=== PATIENT | male | born 1965 | race Two or more races ===

== ENCOUNTER 2020-05-21 08:36 | Inpatient (IN) | payer OTHER ==
--- NOTE | 2020-05-21 09:16 | BHS.RME ---
Substance Use & Tx History - Substance Use History Alcohol Substance amount: 1 cale Ortega Frequency of use: Daily Substance route: Oral Date of Last Use: 05/20/20 Cocaine-Crack Substance amount: $500 Frequency of use: Daily Substance route: Smoking Date of Last Use: 05/20/20 Physical/Psych/Mental Status - Behavior General Behavior: Increased activity (restlessness, agitation) Eye Contact: Normal - Cooperativeness Cooperativeness: Cooperative - Thinking Thought Processes: Tight, Logical, Goal Directed Thought content: Future oriented - Physical Health Problems Is patient presently having any pain?: No Does patient presently have any injuries (include location): No Does patient currently have a fever: No Is patient : No CIWA Nausea/Vomitin Muscle Tremors: 2 Anxiety: 4-Mod. Anxious/Guarded Agitation: 4-Moderately Restless Paroxysmal Sweats: 3 Orientation: 1-Uncertain about Date Tacttile Disturbances: 0-None Auditory Disturbances: 0-None Visual Disturbances: 0-None Headache: 0-None Present CIWA-Ar Total Score: 17
--- NOTE | 2020-05-21 09:42 | HP ---
CIWA Score Nausea/Vomitin Muscle Tremors: 2 Anxiety: 4-Mod. Anxious/Guarded Agitation: 4-Moderately Restless Paroxysmal Sweats: 3 Orientation: 1-Uncertain about Date Tacttile Disturbances: 0-None Auditory Disturbances: 0-None Visual Disturbances: 0-None Headache: 0-None Present CIWA-Ar Total Score: 17 - Admission Criteria OASAS Guidelines: Admission for Medically Managed Detox: Requires at least one of the followin. CIWA greater than 12 2. Seizures within the past 24 hours 3. Delirium tremens within the past 24 hours 4. Hallucinations within the past 24 hours 5. Acute intervention needed for co occurring medical disorder 6. Acute intervention needed for co occurring psychiatric disorder 7. Severe withdrawal that cannot be handled at a lower level of care (continued vomiting, continued diarrhea, abnormal vital signs) requiring intravenous medication and/or fluids 8. Admitting History and Physical - Admission Chief Complaint: Mr. Devine is a 54 yo man who presents to [facility] stating he needs detox and then assisted rehab to be able to go back to his , "there is no option". History of Present Illness: Mr. Devine is a 54 yo man who presents to [facility] stating he needs detox and then assisted rehab to be able to go back to his , "there is no option". He was last here in December for Rehab. He relapsed on April 11, 2020. He was at [facility] today for chest pain. He has no records, may have left in [place]. Pt states he was evaluated with an EKG and discharged/told to come in for detox at [facility]. PMH: scoliosis, chronic low back pain, lichen planus PSH: lumbar spinal surgery, scolisosis surgery age 13 with rods, then rods removed, bilateral TMJ Psych: PTSD: no meds. Admitted years ago to a Psychiatric facility SOC: homeless, on the streets Legal: none Substance Use History Alcohol Substance amount: 1 pint Shannon Frequency of use: Daily Substance route: Oral Date of Last Use: 05/20/20 First drink age 24 y. No hx of seizure Has had blackouts, last was months ago Admits to eye [facility] Cocaine-Crack Substance amount: $500 Frequency of use: Daily Substance route: Smoking Date of Last Use: 05/20/20 Began age 24 yo Pt meds: amlodipine unsure of dose ? 10 mg, lipitor ? 20 or 40 mg daily, Claritian 10, Tramadol, prednisone 10 mg daily for lichen planus I stop: last rx filed Tramadol 50 mg, 14 tabs. 2018 and Sep 2019: oxycodone History Source: Patient Limitations to Obtaining History: No Limitations - Smoking History Smoking history: Never smoked Admission ROS S - HPI Allergies/Adverse Reactions: Allergies Allergy/AdvReac Type Severity Reaction Status Date / Time No Known Drug Allergies AdvReac Verified 12/12/19 12:40 Exam Limitations: No Limitations - Ebola screening Have you traveled outside of the country in the last 21 days: No Have you been sick,other than usual withdrawal symptoms: No Do you have a fever: No - Review of Systems Constitutional: No Symptoms Reported EENT: reports: Blurred Vision (reading glasses not with him) Respiratory: reports: No Symptoms reported Cardiac: reports: Other (no chest pain) GI: reports: Constipated : reports: No Symptoms Reported Musculoskeletal: reports: Back Pain Integumentary: reports: Other (patchy lichen planus) Endocrine: reports: No Symptoms Reported Hematology: reports: No Symptoms Reported Psychiatric: reports: Anxious Patient History - Patient Medical History Hx Asthma: No Hx Chronic Obstructive Pulmonary Disease (COPD): No Hx Cardiac Disorders: No Hx Hypertension: Yes (on meds.) Hx Hypercholesterolemia: Yes Hx Seizures: No Hx Diabetes: No Hx Gastrointestinal Disorders: No Hx Genitourinary Disorders: No Hx Sexually Transmitted Disorders: No Hx Renal Disease (ESRD): No Hx Depression: Yes (Pt is not currently in tx.) Hx Suicide Attempt: No Hx Schizophrenia: No - Patient Surgical History Past Surgical History: Yes Other Surgical History: scoliosis surgery, removal of Paul April 2019, TMJ surgery March 2019 Anesthesia Reaction: No - PPD History Date: 12/14/19 - Smoking Cessation Smoking history: Never smoked Initiated information on smoking cessation: No Admission Physical Exam [facility] - Vital Signs Vital Signs: vs: 111/59, 55, 20, 98.2 - Physical General Appearance: Yes: No Apparent Distress, Nourished, Appropriately Dressed HEENTM: Yes: EOMI, Hearing grossly Normal, Normocephalic, Normal Voice Respiratory: Yes: Lungs Clear, No Respiratory Distress, No Accessory Muscle Use Neck: Yes: Within Normal Limits, Supple Breast: Yes: Breast Exam Deferred Cardiology: Yes: Regular Rhythm, Regular Rate Abdominal: Yes: Non Tender, Flat, Soft, Decreased BS Genitourinary: Yes: Other (deferred) Musculoskeletal: Yes: Gait Steady, Other (surgical scar midline spine from midthoracic to sacrum) Extremities: Yes: Normal Inspection Neurological: Yes: Alert, Normal Response Integumentary: Yes: Other (hyperpigmented patches diffusely over body) - Diagnostic (1) Alcohol dependence with withdrawal, uncomplicated Current Visit: Yes Status: Acute Comment: 1. Admit for Librium detox protocol 2. comfort medication 3. 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 untreated 2. Pt requests consultation with Psychiatry (6) Sciatica Current Visit: No Status: Chronic Qualifiers: Laterality: right Qualified Code(s): M54.31 - Sciatica, right side Comment: 1. Chronic back pain since teens 2. Discussed pain management with patient, will not be able to continue controlled substances while inpatient 3. will review prior visit for treatement of pain in December 2019 4. will add Lidoderm patch 5. Tylenol, ibuprofen, robaxin prn (7) Hernia of abdominal wall Current Visit: No Status: Chronic Comment: 1. patient has been seen in consultation, told he needs surgery, rec: pt to follow up with that provider post rehab Cleared for Admission BHS - Detox or Rehab S Level of Care: Medically Managed Detox Regimen/Protocol: Librium Breathalyzer - Breathalyzer Breathalyzer: 0 Urine Drug Screen - Test Device Lot number: [id number] Expiration date: 12/17/21 - Control Is test valid?: Yes - Results Drug screen NEGATIVE: No Urine drug screen results: JESSA-Cocaine, OXY-Oxycodone Inpatient Rehab Admission - Rehab Decision to Admit Inpatient rehab admission?: No
[2020-05-21 09:55] VITALS: BMI 23.7
[2020-05-21] MEDS ORDERED: BISMUTH SUBSALICYLATE 524 MG/30 ML UD PO PRN (09:55)
[2020-05-21] MEDS ORDERED: ONDANSETRON *ODT* 4 MG TABLET SL PRN (09:55)
[2020-05-21] MEDS ORDERED: IBUPROFEN 400 MG TABLET (FP) PO PRN (09:55)
[2020-05-21] MEDS ORDERED: MAGNESIUM CITRATE 300 ML BOTTLE PO PRN (09:55)
[2020-05-21] MEDS ORDERED: ACETAMINOPHEN 325 MG TABLET (FP) PO PRN ×2 (09:55)
[2020-05-21] MEDS ORDERED: MENTHOL/PHENOL 1 EACH UD MM PRN (09:55)
[2020-05-21] MEDS ORDERED: METHOCARBAMOL 500 MG TABLET PO PRN (09:55)
[2020-05-21] MEDS ORDERED: chlordiazePOXIDE HCL 25 MG CAPSULE PO PRN (09:55)
[2020-05-21] MEDS ORDERED: MAGNESIUM HYDROX 2400MG/30ML ORAL SUSPENSION 30 ML CUP PO PRN (09:55)
[2020-05-21] MEDS ORDERED: MAG HYDROX/AL HYDROX/SIMETH 30 ML UNIT-DOSE CUP PO PRN (09:55)
[2020-05-21] MEDS: amLODIPine BESYLATE 10 MG TABLET (FP) PO SCH (11:06)
[2020-05-21] MEDS: LORATADINE 10 MG TABLET PO SCH (11:30)
[2020-05-21] MEDS: hydrOXYzine PAMOATE 25 MG CAPSULE (FP) PO SCH ×4 (11:32→22:29)
[2020-05-21] MEDS: chlordiazePOXIDE HCL 25 MG CAPSULE PO SCH ×3 (11:33→22:29)
[2020-05-21] MEDS: PRENATAL VITAMINS W/ FOLIC ACID TABLET (FP) PO SCH (11:33)
--- NOTE | 2020-05-21 12:41 | EKG ---
Test Reason : Blood Pressure : / mmHG Vent. Rate : 062 BPM Atrial Rate : 062 BPM P-R Int : 152 ms QRS Dur : 082 ms QT Int : 420 ms P-R-T Axes : 071 -20 065 degrees QTc Int : 426 ms NORMAL SINUS RHYTHM NORMAL ECG WHEN COMPARED WITH ECG OF 12-DEC-2019 12:16, NO SIGNIFICANT CHANGE WAS FOUND Confirmed by LUIS WILKES MD ([id number]) on 05/21/2020 12:40:41 PM Referred By: Confirmed By:LUIS WILKES MD
[2020-05-21] MEDS: LIDOCAINE 5% TOPICAL PATCH TP SCH (13:15)
[2020-05-21] MEDS: predniSONE 10 MG TABLET (UD) PO SCH (13:15)
[2020-05-21 17:33] LABS: HEMATOCRIT 35.2 % (35.4-49); HEMOGLOBIN 11.9 GM/dL (11.7-16.9); MCH 27.7 pg (25.7-33.7); MCHC 33.7 g/dl (32.0-35.9); MEAN PLT VOLUME 9.2 fl (7.5-11.1); PLATELET COUNT 218 K/MM3 (134-434); RBC 4.29 M/mm3 (4.00-5.60); WHITE BLOOD COUNT 6.7 K/mm3 (4.0-10.0)
[2020-05-21 17:46] LABS: ALBUMIN 3.5 g/dl (3.4-5.0); ALK PHOS 131 U/L (45-117); ANION GAP 6 MMOL/L (8-16); BILIRUBIN,TOTAL 0.9 mg/dL (0.2-1); BLOOD UREA NITROGEN 12.6 mg/dL (7-18); CALCIUM 8.9 mg/dL (8.5-10.1); CHLORIDE 107 mmol/L (98-107); CO2 31 mmol/L (21-32); CREATININE 1.1 mg/dL (0.55-1.3); GLUCOSE,RANDOM 80 mg/dL (74-106); POTASSIUM 3.6 mmol/L (3.5-5.1); SGOT/AST 11 U/L (15-37); SGPT/ALT 14 U/L (13-61); SODIUM 144 mmol/L (136-145); TOT PROT 6.9 g/dl (6.4-8.2)
[2020-05-21] MEDS: LIDOCAINE PATCH REMOVAL MC SCH (22:28)
[2020-05-21] MEDS: ATORVASTATIN CA 10 MG TABLET (FP) PO SCH (22:29)
[2020-05-21] MEDS: THIAMINE HCL 100 MG TABLET (FP) PO SCH (22:29)
[2020-05-21] MEDS: MELATONIN 5 MG TABLETS PO SCH (22:29)
[2020-05-22] MEDS: hydrOXYzine PAMOATE 25 MG CAPSULE (FP) PO SCH ×5 (08:13→22:33)
[2020-05-22] MEDS: chlordiazePOXIDE HCL 25 MG CAPSULE PO SCH ×4 (08:13→22:33)
[2020-05-22] MEDS: LORATADINE 10 MG TABLET PO SCH (10:30)
[2020-05-22] MEDS: LIDOCAINE 5% TOPICAL PATCH TP SCH (10:30)
[2020-05-22] MEDS: predniSONE 10 MG TABLET (UD) PO SCH (10:31)
[2020-05-22] MEDS: amLODIPine BESYLATE 10 MG TABLET (FP) PO SCH (10:32)
[2020-05-22] MEDS: PRENATAL VITAMINS W/ FOLIC ACID TABLET (FP) PO SCH (10:32)
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
--- NOTE | 2020-05-22 15:40 | PN ---
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 Objective: 05/22/20 16:21 Vital Signs Temperature 97.7 F 05/22/20 12:49 Pulse Rate 71 05/22/20 12:49 Respiratory Rate 18 05/22/20 12:49 Blood Pressure 98/53 L 05/22/20 12:49 O2 Sat by Pulse Oximetry (%) 100 05/22/20 12:49 05/22/20 16:21 Laboratory Last Values WBC 6.7 K/mm3 (4.0-10.0) 05/21/20 11:15 RBC 4.29 M/mm3 (4.00-5.60) 05/21/20 11:15 Hgb 11.9 GM/dL (11.7-16.9) 05/21/20 11:15 Hct 35.2 % (35.4-49) L 05/21/20 11:15 MCV 82.0 fl (80-96) 05/21/20 11:15 MCH 27.7 pg (25.7-33.7) 05/21/20 11:15 MCHC 33.7 g/dl (32.0-35.9) 05/21/20 11:15 RDW 15.0 % (11.9-15.9) 05/21/20 11:15 Plt Count 218 K/MM3 (134-434) 05/21/20 11:15 MPV 9.2 fl (7.5-11.1) 05/21/20 11:15 Sodium 144 mmol/L (136-145) 05/21/20 11:15 Potassium 3.6 mmol/L (3.5-5.1) 05/21/20 11:15 Chloride 107 mmol/L (98-107) 05/21/20 11:15 Carbon Dioxide 31 mmol/L (21-32) 05/21/20 11:15 Anion Gap 6 MMOL/L (8-16) L 05/21/20 11:15 BUN 12.6 mg/dL (7-18) 05/21/20 11:15 Creatinine 1.1 mg/dL (0.55-1.3) 05/21/20 11:15 Est GFR (CKD-EPI)AfAm 86.52 05/21/20 11:15 Est GFR (CKD-EPI)NonAf 74.65 05/21/20 11:15 Random Glucose 80 mg/dL (74-106) 05/21/20 11:15 Calcium 8.9 mg/dL (8.5-10.1) 05/21/20 11:15 Total Bilirubin 0.9 mg/dL (0.2-1) 05/21/20 11:15 AST 11 U/L (15-37) L 05/21/20 11:15 ALT 14 U/L (13-61) 05/21/20 11:15 Alkaline Phosphatase 131 U/L (45-117) H 05/21/20 11:15 Troponin I < 0.02 ng/ml (0.00-0.05) 05/21/20 11:15 Total Protein 6.9 g/dl (6.4-8.2) 05/21/20 11:15 Albumin 3.5 g/dl (3.4-5.0) 05/21/20 11:15 Syphilis Serology Non-reactive (NONREACTIVE) 05/21/20 11:15 COVID-19 (EZIO) Not detected (Not Detected) 05/21/20 11:15 HIV Ag/Ab Combo Qual Negative (NEGATIVE) 05/21/20 11:15 Assessment: 05/22/20 16:21 withdrawal symptom Plan: continue detox librium regimen
[2020-05-22] MEDS: MELATONIN 5 MG TABLETS PO SCH (22:33)
[2020-05-22] MEDS: LIDOCAINE PATCH REMOVAL MC SCH (22:33)
[2020-05-22] MEDS: THIAMINE HCL 100 MG TABLET (FP) PO SCH (22:33)
[2020-05-22] MEDS: ATORVASTATIN CA 10 MG TABLET (FP) PO SCH (22:33)
[2020-05-23] MEDS: chlordiazePOXIDE HCL 25 MG CAPSULE PO SCH ×4 (05:35→23:09)
[2020-05-23] MEDS: hydrOXYzine PAMOATE 25 MG CAPSULE (FP) PO SCH ×4 (05:35→23:10)
[2020-05-23] MEDS: amLODIPine BESYLATE 10 MG TABLET (FP) PO SCH (10:49)
[2020-05-23] MEDS: PRENATAL VITAMINS W/ FOLIC ACID TABLET (FP) PO SCH (10:49)
[2020-05-23] MEDS: LORATADINE 10 MG TABLET PO SCH (10:49)
[2020-05-23] MEDS: predniSONE 10 MG TABLET (UD) PO SCH (10:49)
[2020-05-23] MEDS: LIDOCAINE 5% TOPICAL PATCH TP SCH (10:49)
--- NOTE | 2020-05-23 11:04 | PN ---
S CIWA - CIWA Score Nausea/Vomitin-No Nausea/No Vomiting Muscle Tremors: None Anxiety: 3 Agitation: 1-Slight > Activity Paroxysmal Sweats: 2 Orientation: 0-Oriented Tacttile Disturbances: 0-None Auditory Disturbances: 0-None Visual Disturbances: 0-None Headache: 2-Mild CIWA-Ar Total Score: 8 BHS Progress Note (SOAP) Subjective: c/o headache, anxiety, sweats, and irritability. Objective: 05/23/20 11:04 Vital Signs 05/23/20 05/23/20 07:29 08:42 Temperature 97.1 F L 97.1 F L Pulse Rate 58 L 66 Respiratory 16 18 Rate Blood Pressure 108/65 116/75 O2 Sat by Pulse 96 Oximetry (%) Laboratory Last Values WBC 6.7 K/mm3 (4.0-10.0) 05/21/20 11:15 RBC 4.29 M/mm3 (4.00-5.60) 05/21/20 11:15 Hgb 11.9 GM/dL (11.7-16.9) 05/21/20 11:15 Hct 35.2 % (35.4-49) L 05/21/20 11:15 MCV 82.0 fl (80-96) 05/21/20 11:15 MCH 27.7 pg (25.7-33.7) 05/21/20 11:15 MCHC 33.7 g/dl (32.0-35.9) 05/21/20 11:15 RDW 15.0 % (11.9-15.9) 05/21/20 11:15 Plt Count 218 K/MM3 (134-434) 05/21/20 11:15 MPV 9.2 fl (7.5-11.1) 05/21/20 11:15 Sodium 144 mmol/L (136-145) 05/21/20 11:15 Potassium 3.6 mmol/L (3.5-5.1) 05/21/20 11:15 Chloride 107 mmol/L (98-107) 05/21/20 11:15 Carbon Dioxide 31 mmol/L (21-32) 05/21/20 11:15 Anion Gap 6 MMOL/L (8-16) L 05/21/20 11:15 BUN 12.6 mg/dL (7-18) 05/21/20 11:15 Creatinine 1.1 mg/dL (0.55-1.3) 05/21/20 11:15 Est GFR (CKD-EPI)AfAm 86.52 05/21/20 11:15 Est GFR (CKD-EPI)NonAf 74.65 05/21/20 11:15 Random Glucose 80 mg/dL (74-106) 05/21/20 11:15 Calcium 8.9 mg/dL (8.5-10.1) 05/21/20 11:15 Total Bilirubin 0.9 mg/dL (0.2-1) 05/21/20 11:15 AST 11 U/L (15-37) L 05/21/20 11:15 ALT 14 U/L (13-61) 05/21/20 11:15 Alkaline Phosphatase 131 U/L (45-117) H 05/21/20 11:15 Troponin I < 0.02 ng/ml (0.00-0.05) 05/21/20 11:15 Total Protein 6.9 g/dl (6.4-8.2) 05/21/20 11:15 Albumin 3.5 g/dl (3.4-5.0) 05/21/20 11:15 Syphilis Serology Non-reactive (NONREACTIVE) 05/21/20 11:15 COVID-19 (EZIO) Not detected (Not Detected) 05/21/20 11:15 HIV Ag/Ab Combo Qual Negative (NEGATIVE) 05/21/20 11:15 Labs noted. Assessment: 05/23/20 11:04 AOX3, in no acute respiratory distress. Full ROM, ambulating in the unit. Withdrawal symptoms. Plan: continue detox.
[2020-05-23] MEDS: MELATONIN 5 MG TABLETS PO SCH (23:10)
[2020-05-23] MEDS: LIDOCAINE PATCH REMOVAL MC SCH (23:10)
[2020-05-23] MEDS: THIAMINE HCL 100 MG TABLET (FP) PO SCH (23:10)
[2020-05-23] MEDS: ATORVASTATIN CA 10 MG TABLET (FP) PO SCH (23:10)
[2020-05-24] MEDS ORDERED: chlordiazePOXIDE HCL 10 MG CAPSULE PO PRN
[2020-05-24] MEDS: hydrOXYzine PAMOATE 25 MG CAPSULE (FP) PO SCH ×5 (06:49→23:58)
[2020-05-24] MEDS: chlordiazePOXIDE HCL 10 MG CAPSULE PO SCH ×4 (06:50→23:51)
[2020-05-24] MEDS: PRENATAL VITAMINS W/ FOLIC ACID TABLET (FP) PO SCH (10:47)
[2020-05-24] MEDS: LIDOCAINE 5% TOPICAL PATCH TP SCH (10:48)
[2020-05-24] MEDS: LORATADINE 10 MG TABLET PO SCH (10:48)
[2020-05-24] MEDS: amLODIPine BESYLATE 10 MG TABLET (FP) PO SCH (10:48)
[2020-05-24] MEDS: predniSONE 10 MG TABLET (UD) PO SCH (10:48)
--- NOTE | 2020-05-24 15:23 | PN ---
S CIWA - CIWA Score Nausea/Vomitin-Mild Nausea/No Vomiting Muscle Tremors: 1-None Visible, but [place] Anxiety: 1-Mildly Anxious Agitation: 0-Normal Activity Paroxysmal Sweats: No Perspiration Orientation: 0-Oriented Tacttile Disturbances: 0-None Auditory Disturbances: 0-None Visual Disturbances: 2-Mild Sensitivity Headache: 1-Very Mild CIWA-Ar Total Score: 6 BHS Progress Note (SOAP) Subjective: 54 years old male was admitted on 05/21/20 for alcohol withdrawal sx management treating with librium detox regiment ate breakfast and lunch in room resting in bed encourage to discuss aftercare with staff mr person prefers [facility] for his alcohol abuse treatment Objective: 05/24/20 15:25 Laboratory Tests 05/21/20 05/21/20 05/21/20 11:15 11:15 11:15 WBC 6.7 RBC 4.29 Hgb 11.9 Hct 35.2 L MCV 82.0 MCH 27.7 MCHC 33.7 RDW 15.0 Plt Count 218 MPV 9.2 Sodium 144 Potassium 3.6 Chloride 107 Carbon Dioxide 31 Anion Gap 6 L BUN 12.6 Creatinine 1.1 Est GFR (CKD-EPI)AfAm 86.52 Est GFR (CKD-EPI)NonAf 74.65 Random Glucose 80 Calcium 8.9 Total Bilirubin 0.9 AST 11 L ALT 14 Alkaline Phosphatase 131 H Troponin I < 0.02 Total Protein 6.9 Albumin 3.5 Syphilis Serology Non-reactive COVID-19 (EZIO) HIV Ag/Ab Combo Qual 05/21/20 05/21/20 11:15 11:15 WBC RBC Hgb Hct MCV MCH MCHC RDW Plt Count MPV Sodium Potassium Chloride Carbon Dioxide Anion Gap BUN Creatinine Est GFR (CKD-EPI)AfAm Est GFR (CKD-EPI)NonAf Random Glucose Calcium Total Bilirubin AST ALT Alkaline Phosphatase Troponin I Total Protein Albumin Syphilis Serology COVID-19 (EZIO) Not detected HIV Ag/Ab Combo Qual Negative lab noted 05/24/20 15:26 Vital Signs - 24 hr 05/23/20 05/23/20 05/24/20 16:50 20:58 05:28 Temperature 97.1 F L 97.3 F L 96.9 F L Pulse Rate 84 81 77 Respiratory 18 18 18 Rate Blood Pressure 105/64 98/59 L 105/66 O2 Sat by Pulse 98 98 Oximetry (%) 05/24/20 05/24/20 08:48 12:25 Temperature 96.4 F L 97.1 F L Pulse Rate 82 92 H Respiratory 18 18 Rate Blood Pressure 112/71 119/70 O2 Sat by Pulse 100 Oximetry (%) Assessment: 05/24/20 15:26 alcohol withdrawal Plan: librium regiment
[2020-05-24] MEDS: LIDOCAINE PATCH REMOVAL MC SCH (23:58)
[2020-05-24] MEDS: MELATONIN 5 MG TABLETS PO SCH (23:58)
[2020-05-24] MEDS: ATORVASTATIN CA 10 MG TABLET (FP) PO SCH (23:58)
[2020-05-24] MEDS: THIAMINE HCL 100 MG TABLET (FP) PO SCH (23:59)
[2020-05-25] MEDS: hydrOXYzine PAMOATE 25 MG CAPSULE (FP) PO SCH ×5 (06:31→22:54)
[2020-05-25] MEDS: chlordiazePOXIDE HCL 10 MG CAPSULE PO SCH ×2 (06:31→18:08)
[2020-05-25] MEDS: LORATADINE 10 MG TABLET PO SCH (10:30)
[2020-05-25] MEDS: amLODIPine BESYLATE 10 MG TABLET (FP) PO SCH (10:30)
[2020-05-25] MEDS: LIDOCAINE 5% TOPICAL PATCH TP SCH (10:30)
[2020-05-25] MEDS: predniSONE 10 MG TABLET (UD) PO SCH (10:30)
[2020-05-25] MEDS: PRENATAL VITAMINS W/ FOLIC ACID TABLET (FP) PO SCH (10:30)
[2020-05-25] MEDS ORDERED: ERGOCALCIFEROL (VIT D2) 50,000 UNIT (1.25 MG) CAPSULE PO ONE (12:15)
--- NOTE | 2020-05-25 12:16 | PN ---
S CIWA - CIWA Score Nausea/Vomitin-No Nausea/No Vomiting Muscle Tremors: 2 Anxiety: 2 Agitation: 1-Slight > Activity Paroxysmal Sweats: No Perspiration Orientation: 0-Oriented Tacttile Disturbances: 0-None Auditory Disturbances: 0-None Visual Disturbances: 0-None Headache: 1-Very Mild CIWA-Ar Total Score: 6 BHS Progress Note (SOAP) Subjective: alert,anxious,interrupted sleep,aching pain Objective: 05/25/20 18:11 Vital Signs Temperature 97.7 F 05/25/20 16:32 Pulse Rate 97 H 05/25/20 16:32 Respiratory Rate 18 05/25/20 16:32 Blood Pressure 115/68 05/25/20 16:32 O2 Sat by Pulse Oximetry (%) 98 05/25/20 14:51 Assessment: 05/25/20 18:12 withdrawal symptom Plan: continue detox librium regimen ,discharge in am
[2020-05-25] MEDS: THIAMINE HCL 100 MG TABLET (FP) PO SCH (22:45)
[2020-05-25] MEDS: ATORVASTATIN CA 10 MG TABLET (FP) PO SCH (22:45)
[2020-05-25] MEDS: MELATONIN 5 MG TABLETS PO SCH (22:46)
[2020-05-25] MEDS: LIDOCAINE PATCH REMOVAL MC SCH (22:46)
[2020-05-26] MEDS ORDERED: chlordiazePOXIDE HCL 10 MG CAPSULE PO ONE (05:00)
[2020-05-26] MEDS: hydrOXYzine PAMOATE 25 MG CAPSULE (FP) PO SCH ×3 (05:30→13:50)
--- NOTE | 2020-05-26 09:46 | DS ---
[facility] Detox Discharge Summary Admission Date: 05/21/20 Discharge Date: 05/26/20 - History Present History: Alcohol Dependence Additional Comments: 54 years old male was admitted on 05/21/20 for alcohol withdrawal sx management treated with librium detox regiment seen by psychiatrist no medical intervention mr person has completed librium regiment and is tolerated well General Appearance: Yes: No Apparent Distress, Nourished, Appropriately Dressed HEENTM: Yes: EOMI, Hearing grossly Normal, Normocephalic, Normal Voice Respiratory: Yes: Lungs Clear, No Respiratory Distress, No Accessory Muscle Use Neck: Yes: Within Normal Limits, Supple Breast: Yes: Breast Exam Deferred Cardiology: Yes: Regular Rhythm, Regular Rate Abdominal: Yes: Non Tender, Flat, Soft, Decreased BS Genitourinary: Yes: Other (deferred) Musculoskeletal: Yes: Gait Steady, Other (surgical scar midline spine from midthoracic to sacrum) Extremities: Yes: Normal Inspection Neurological: Yes: Alert, Normal Response Integumentary: Yes: Other (hyperpigmented patches diffusely over body) Pertinent Past History: time for discharge 45 minutes transferred order set from detox to rehab - Physical Exam Results Vital Signs: Vital Signs Temperature 97.5 F L 05/26/20 08:26 Pulse Rate 94 H 05/26/20 08:26 Respiratory Rate 18 05/26/20 08:26 Blood Pressure 99/66 05/26/20 08:26 O2 Sat by Pulse Oximetry (%) 100 05/26/20 05:56 Pertinent Admission Physical Exam Findings: alcohol withdrawal Laboratory Tests 05/21/20 05/21/20 05/21/20 11:15 11:15 11:15 WBC 6.7 RBC 4.29 Hgb 11.9 Hct 35.2 L MCV 82.0 MCH 27.7 MCHC 33.7 RDW 15.0 Plt Count 218 MPV 9.2 Sodium 144 Potassium 3.6 Chloride 107 Carbon Dioxide 31 Anion Gap 6 L BUN 12.6 Creatinine 1.1 Est GFR (CKD-EPI)AfAm 86.52 Est GFR (CKD-EPI)NonAf 74.65 Random Glucose 80 Calcium 8.9 Total Bilirubin 0.9 AST 11 L ALT 14 Alkaline Phosphatase 131 H Troponin I < 0.02 Total Protein 6.9 Albumin 3.5 Syphilis Serology Non-reactive COVID-19 (EZIO) HIV Ag/Ab Combo Qual 05/21/20 05/21/20 11:15 11:15 WBC RBC Hgb Hct MCV MCH MCHC RDW Plt Count MPV Sodium Potassium Chloride Carbon Dioxide Anion Gap BUN Creatinine Est GFR (CKD-EPI)AfAm Est GFR (CKD-EPI)NonAf Random Glucose Calcium Total Bilirubin AST ALT Alkaline Phosphatase Troponin I Total Protein Albumin Syphilis Serology COVID-19 (EZIO) Not detected HIV Ag/Ab Combo Qual Negative lab noted Vital Signs - 24 hr 05/25/20 05/25/20 05/25/20 14:51 16:32 20:06 Temperature 98.0 F 97.7 F 97.5 F L Pulse Rate 81 97 H 108 H Respiratory 18 18 18 Rate Blood Pressure 102/61 115/68 111/73 O2 Sat by Pulse 98 98 Oximetry (%) 05/26/20 05/26/20 05:56 08:26 Temperature 97.5 F L 97.5 F L Pulse Rate 50 L 94 H Respiratory 18 18 Rate Blood Pressure 99/57 L 99/66 O2 Sat by Pulse 100 Oximetry (%) low bp change amlodipine to 5 mg po daily while in rehab - Treatment Hospital Course: Detox Protocol Followed, Detoxed Safely, Responded well, Discharged Condition Good, Rehab Referral Accepted Patient has Accepted [facility] - Medication Discharge Medications: Ambulatory Orders Loratadine [Claritin -] 10 mg PO DAILY 12/12/19 Prednisone 10 mg PO DAILY 12/12/19 Atorvastatin Ca [Lipitor] 10 mg PO HS #30 tablet 01/01/20 Ergocalciferol [Vitamin D2] 50,000 unit PO ONCE #1 capsule 05/25/20 Amlodipine Besylate [Norvasc -] 5 mg PO DAILY 05/26/20 - Diagnosis (1) Alcohol dependence with withdrawal, uncomplicated Current Visit: Yes Status: Acute (2) HLD (hyperlipidemia) Current Visit: Yes Status: Chronic Qualifiers: Hyperlipidemia type: pure hypertriglyceridemia Qualified Code(s): E78.1 - Pure hyperglyceridemia (3) HTN (hypertension) Current Visit: Yes Status: Chronic Qualifiers: Hypertension type: essential hypertension Qualified Code(s): I10 - Essential (primary) hypertension (4) Substance induced mood disorder Current Visit: Yes Status: Suspected (5) Allergic rhinitis Current Visit: Yes Status: Chronic Qualifiers: Allergic rhinitis trigger: unspecified Allergic rhinitis seasonality: non- seasonal Qualified Code(s): J30.89 - Other allergic rhinitis (6) Vitamin D deficiency disease Current Visit: Yes Status: Chronic (7) Ambulates with cane Current Visit: Yes Status: Chronic (8) Chronic back pain Current Visit: Yes Status: Chronic Qualifiers: Back pain location: low back pain Back pain laterality: midline Sciatica presence: with sciatica Sciatica laterality: sciatica laterality unspecified Qualified Code(s): M54.40 - Lumbago with sciatica, unspecified side; G89.29 - Other chronic pain - AMA Did Patient Leave Against Medical Advice: No CIWA Score - CIWA Score Nausea/Vomitin-No Nausea/No Vomiting Muscle Tremors: 2 Anxiety: 2 Agitation: 0-Normal Activity Paroxysmal Sweats: No Perspiration Orientation: 0-Oriented Tacttile Disturbances: 0-None Auditory Disturbances: 0-None Visual Disturbances: 0-None Headache: 0-None Present CIWA-Ar Total Score: 4
[2020-05-26] MEDS: predniSONE 10 MG TABLET (UD) PO SCH (10:24)
[2020-05-26] MEDS: LORATADINE 10 MG TABLET PO SCH (10:24)
[2020-05-26] MEDS: PRENATAL VITAMINS W/ FOLIC ACID TABLET (FP) PO SCH (10:24)
[2020-05-26] MEDS: LIDOCAINE 5% TOPICAL PATCH TP SCH (10:25)
[2020-05-26] MEDS: amLODIPine BESYLATE 10 MG TABLET (FP) PO SCH (10:25)
[2020-05-26 13:35] VITALS: BP 103/65; PULSE 83; TEMP 97.3
== END 2020-05-26 13:50 | disposition other institution (70) | DRG 774 ==
LOC: YASAS 08:36 → Y3N 09:54
PROVIDERS: ADMIT Allergy & Immunology; ATTEND Allergy & Immunology
PROC: HZ2ZZZZ Detoxification Services for Substance Abuse Treatment (ICD-10-PCS; principal; 2020-05-21)
DX: F10.230 Alcohol dependence with withdrawal, uncomplicated (principal); F14.20 Cocaine dependence, uncomplicated; F19.24 Other psychoactive substance dependence with psychoactive substance-induced mood disorder; F43.10 Post-traumatic stress disorder, unspecified; E78.1 Pure hyperglyceridemia; E55.9 Vitamin D deficiency, unspecified; I10 Essential (primary) hypertension; K43.9 Ventral hernia without obstruction or gangrene; J30.89 Other allergic rhinitis; M54.41 Lumbago with sciatica, right side; G89.29 Other chronic pain; L40.9 Psoriasis, unspecified; L43.9 Lichen planus, unspecified; Z99.89 Dependence on other enabling machines and devices; Z86.19 Personal history of other infectious and parasitic diseases
CPT/HCPCS: 36415; 80053; 84484; 85027; 86780; 87389; 93005; 93010; U0003

== ENCOUNTER 2020-05-26 14:06 | Inpatient (IN) | payer OTHER ==
--- NOTE | 2020-05-26 09:47 | HP ---
[facility] Rehab Assess/Revision - Admission History Admitted to Rehab from: [facility] Date of Admission to Rehab: 05/26/20 - Findings Detox History & Physical reviewed: Yes Concur with findings: Yes Comments/Additional Findings: transferred from detox to rehab admission as per protocol Inpatient Rehab Admission - Rehab Decision to Admit Inpatient rehab admission?: Yes - Initial Determination Are CD services needed?: Yes Free of communicable disease: Yes Not in need of hospitalization: Yes - Rehab Admission Criteria Previous failed treatment: Yes Poor recovery environment: Yes Comorbidities: Yes Lacks judgement: Yes Patient is meeting Inpatient Rehab admission criteria:: Yes
[~2020-05-26 14:06] MED LIST: ACETAMINOPHEN 325 MG TABLET (FP) PO PRN; IBUPROFEN 400 MG TABLET (FP) PO PRN; LOPERAMIDE HCL 2 MG CAPSULE PO PRN; MAG HYDROX/AL HYDROX/SIMETH 30 ML UNIT-DOSE CUP PO PRN; MAGNESIUM CITRATE 300 ML BOTTLE PO PRN; MAGNESIUM HYDROX 2400MG/30ML ORAL SUSPENSION 30 ML CUP PO PRN; NICOTINE 7 MG/24 HOURS TOPICAL PATCH TD SCH; NICOTINE POLACRILEX 2 MG GUM BUC PRN; P-EPHED 60MG/TRIPROLIDI 2.5MG TABLET PO PRN; guaiFENesin 200 MG/10 ML 10 ML UNIT-DOSE CUPS PO PRN
[2020-05-26] MEDS: LIDOCAINE PATCH REMOVAL MC SCH (21:31)
[2020-05-26] MEDS: ATORVASTATIN CA 10 MG TABLET (FP) PO SCH (21:31)
[2020-05-26] MEDS: THIAMINE HCL 100 MG TABLET (FP) PO SCH (21:31)
[2020-05-26] MEDS: MELATONIN 5 MG TABLETS PO SCH (21:32)
[2020-05-27] MEDS ORDERED: amLODIPine BESYLATE 10 MG TABLET (FP) PO SCH (10:00)
[2020-05-27] MEDS: LIDOCAINE 5% TOPICAL PATCH TP SCH (11:57)
[2020-05-27] MEDS: amLODIPine BESYLATE 5 MG TABLET (FP) PO SCH (11:57)
[2020-05-27] MEDS: LORATADINE 10 MG TABLET PO SCH (11:57)
[2020-05-27] MEDS: NICOTINE 7 MG/24 HOURS TOPICAL PATCH TD SCH (11:58)
[2020-05-27] MEDS: PRENATAL VITAMINS W/ FOLIC ACID TABLET (FP) PO SCH (11:58)
[2020-05-27] MEDS: predniSONE 10 MG TABLET (UD) PO SCH (12:30)
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
[2020-05-27] MEDS: LIDOCAINE PATCH REMOVAL MC SCH (21:38)
[2020-05-27] MEDS: MELATONIN 5 MG TABLETS PO SCH (21:38)
[2020-05-27] MEDS: ATORVASTATIN CA 10 MG TABLET (FP) PO SCH (21:38)
[2020-05-27] MEDS: THIAMINE HCL 100 MG TABLET (FP) PO SCH (21:38)
[2020-05-27] MEDS: SUVOREXANT 10 MG TABLET PO PRN (21:39)
[2020-05-28] MEDS: PRENATAL VITAMINS W/ FOLIC ACID TABLET (FP) PO SCH (09:31)
[2020-05-28] MEDS: amLODIPine BESYLATE 5 MG TABLET (FP) PO SCH (09:32)
[2020-05-28] MEDS: predniSONE 10 MG TABLET (UD) PO SCH (09:32)
[2020-05-28] MEDS: NICOTINE 7 MG/24 HOURS TOPICAL PATCH TD SCH (09:32)
[2020-05-28] MEDS: LORATADINE 10 MG TABLET PO SCH (09:32)
[2020-05-28] MEDS: LIDOCAINE 5% TOPICAL PATCH TP SCH (09:33)
[2020-05-28] MEDS: SUVOREXANT 10 MG TABLET PO PRN (21:35)
[2020-05-28] MEDS: THIAMINE HCL 100 MG TABLET (FP) PO SCH (21:35)
[2020-05-28] MEDS: ATORVASTATIN CA 10 MG TABLET (FP) PO SCH (21:35)
[2020-05-28] MEDS: LIDOCAINE PATCH REMOVAL MC SCH (21:36)
[2020-05-28] MEDS: MELATONIN 5 MG TABLETS PO SCH (21:36)
[2020-05-29] MEDS: LORATADINE 10 MG TABLET PO SCH (10:32)
[2020-05-29] MEDS: amLODIPine BESYLATE 5 MG TABLET (FP) PO SCH (10:32)
[2020-05-29] MEDS: LIDOCAINE 5% TOPICAL PATCH TP SCH (10:33)
[2020-05-29] MEDS: PRENATAL VITAMINS W/ FOLIC ACID TABLET (FP) PO SCH ×2 (10:33→10:34)
[2020-05-29] MEDS: NICOTINE 7 MG/24 HOURS TOPICAL PATCH TD SCH (10:34)
[2020-05-29] MEDS: predniSONE 10 MG TABLET (UD) PO SCH (10:36)
[2020-05-29] MEDS: THIAMINE HCL 100 MG TABLET (FP) PO SCH (21:48)
[2020-05-29] MEDS: MELATONIN 5 MG TABLETS PO SCH (21:48)
[2020-05-29] MEDS: ATORVASTATIN CA 10 MG TABLET (FP) PO SCH (21:48)
[2020-05-29] MEDS: LIDOCAINE PATCH REMOVAL MC SCH (21:49)
[2020-05-30] MEDS: amLODIPine BESYLATE 5 MG TABLET (FP) PO SCH (10:02)
[2020-05-30] MEDS: predniSONE 10 MG TABLET (UD) PO SCH (10:02)
[2020-05-30] MEDS: PRENATAL VITAMINS W/ FOLIC ACID TABLET (FP) PO SCH (10:02)
[2020-05-30] MEDS: NICOTINE 7 MG/24 HOURS TOPICAL PATCH TD SCH (10:02)
[2020-05-30] MEDS: LORATADINE 10 MG TABLET PO SCH (10:02)
[2020-05-30] MEDS: LIDOCAINE 5% TOPICAL PATCH TP SCH (10:02)
[2020-05-30] MEDS: MELATONIN 5 MG TABLETS PO SCH (21:45)
[2020-05-30] MEDS: LIDOCAINE PATCH REMOVAL MC SCH (21:45)
[2020-05-30] MEDS: THIAMINE HCL 100 MG TABLET (FP) PO SCH (21:45)
[2020-05-30] MEDS: SUVOREXANT 10 MG TABLET PO PRN (21:45)
[2020-05-30] MEDS: ATORVASTATIN CA 10 MG TABLET (FP) PO SCH (21:45)
[2020-05-31] MEDS: PRENATAL VITAMINS W/ FOLIC ACID TABLET (FP) PO SCH (10:23)
[2020-05-31] MEDS: LORATADINE 10 MG TABLET PO SCH (10:24)
[2020-05-31] MEDS: LIDOCAINE 5% TOPICAL PATCH TP SCH (10:24)
[2020-05-31] MEDS: predniSONE 10 MG TABLET (UD) PO SCH (10:24)
[2020-05-31] MEDS: amLODIPine BESYLATE 5 MG TABLET (FP) PO SCH (10:24)
[2020-05-31] MEDS: NICOTINE 7 MG/24 HOURS TOPICAL PATCH TD SCH (10:24)
[2020-05-31] MEDS: THIAMINE HCL 100 MG TABLET (FP) PO SCH (21:10)
[2020-05-31] MEDS: ATORVASTATIN CA 10 MG TABLET (FP) PO SCH (21:10)
[2020-05-31] MEDS: LIDOCAINE PATCH REMOVAL MC SCH (21:11)
[2020-05-31] MEDS: MELATONIN 5 MG TABLETS PO SCH (21:11)
[2020-06-01] MEDS: LORATADINE 10 MG TABLET PO SCH (09:24)
[2020-06-01] MEDS: amLODIPine BESYLATE 5 MG TABLET (FP) PO SCH (09:24)
[2020-06-01] MEDS: PRENATAL VITAMINS W/ FOLIC ACID TABLET (FP) PO SCH (09:25)
[2020-06-01] MEDS: LIDOCAINE 5% TOPICAL PATCH TP SCH (09:25)
[2020-06-01] MEDS: NICOTINE 7 MG/24 HOURS TOPICAL PATCH TD SCH (09:25)
[2020-06-01] MEDS: predniSONE 10 MG TABLET (UD) PO SCH (09:26)
[2020-06-01] MEDS ORDERED: ERGOCALCIFEROL (VIT D2) 50,000 UNIT (1.25 MG) CAPSULE PO SCH (10:00)
[2020-06-01] MEDS ORDERED: ERGOCALCIFEROL (VIT D2) 50,000 UNIT (1.25 MG) CAPSULE PO ONE (10:00)
[2020-06-01] MEDS: THIAMINE HCL 100 MG TABLET (FP) PO SCH (21:34)
[2020-06-01] MEDS: LIDOCAINE PATCH REMOVAL MC SCH (21:34)
[2020-06-01] MEDS: ATORVASTATIN CA 10 MG TABLET (FP) PO SCH (21:34)
[2020-06-01] MEDS: MELATONIN 5 MG TABLETS PO SCH (21:34)
[2020-06-02] MEDS: LIDOCAINE 5% TOPICAL PATCH TP SCH (10:31)
[2020-06-02] MEDS: LORATADINE 10 MG TABLET PO SCH (10:31)
[2020-06-02] MEDS: PRENATAL VITAMINS W/ FOLIC ACID TABLET (FP) PO SCH (10:31)
[2020-06-02] MEDS: amLODIPine BESYLATE 5 MG TABLET (FP) PO SCH (10:31)
[2020-06-02] MEDS: NICOTINE 7 MG/24 HOURS TOPICAL PATCH TD SCH (10:31)
[2020-06-02] MEDS: predniSONE 10 MG TABLET (UD) PO SCH (10:31)
[2020-06-02] MEDS: THIAMINE HCL 100 MG TABLET (FP) PO SCH (21:27)
[2020-06-02] MEDS: MELATONIN 5 MG TABLETS PO SCH (21:27)
[2020-06-02] MEDS: LIDOCAINE PATCH REMOVAL MC SCH (21:27)
[2020-06-02] MEDS: ATORVASTATIN CA 10 MG TABLET (FP) PO SCH (21:27)
[2020-06-02] MEDS: SUVOREXANT 10 MG TABLET PO PRN (21:28)
[2020-06-03] MEDS: LORATADINE 10 MG TABLET PO SCH (09:09)
[2020-06-03] MEDS: amLODIPine BESYLATE 5 MG TABLET (FP) PO SCH (09:09)
[2020-06-03] MEDS: PRENATAL VITAMINS W/ FOLIC ACID TABLET (FP) PO SCH (09:10)
[2020-06-03] MEDS: LIDOCAINE 5% TOPICAL PATCH TP SCH (09:10)
[2020-06-03] MEDS: NICOTINE 7 MG/24 HOURS TOPICAL PATCH TD SCH (09:10)
[2020-06-03] MEDS: predniSONE 10 MG TABLET (UD) PO SCH (09:10)
[2020-06-03] MEDS: SUVOREXANT 10 MG TABLET PO PRN (21:36)
[2020-06-03] MEDS: MELATONIN 5 MG TABLETS PO SCH (21:36)
[2020-06-03] MEDS: THIAMINE HCL 100 MG TABLET (FP) PO SCH (21:36)
[2020-06-03] MEDS: LIDOCAINE PATCH REMOVAL MC SCH (21:36)
[2020-06-03] MEDS: ATORVASTATIN CA 10 MG TABLET (FP) PO SCH (21:36)
[2020-06-04] MEDS: amLODIPine BESYLATE 5 MG TABLET (FP) PO SCH (10:37)
[2020-06-04] MEDS: predniSONE 10 MG TABLET (UD) PO SCH (10:37)
[2020-06-04] MEDS: LORATADINE 10 MG TABLET PO SCH (10:37)
[2020-06-04] MEDS: LIDOCAINE 5% TOPICAL PATCH TP SCH (10:38)
[2020-06-04] MEDS: NICOTINE 7 MG/24 HOURS TOPICAL PATCH TD SCH (10:38)
[2020-06-04] MEDS: PRENATAL VITAMINS W/ FOLIC ACID TABLET (FP) PO SCH (10:38)
--- NOTE | 2020-06-04 17:17 | PN ---
Psychiatric Progress Note Vital Signs: Vital Signs Period Temp Pulse Resp BP Sys/Magdaleno Pulse Ox Last 24 Hr 97.0 F 87 18 109/69 95-98 Date of Session: 06/04/20 Chief Complaint:: " the rehab wanted you to see me again." HPI: Patient admitted to rehab for alcohol and cocaine dependence. 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 ROS: Patient is ambulatory, alert +oriented X3, calm and cooperative. Current Medications: Active Medications Generic Name Dose Route Start Last Admin Trade Name Freq PRN Reason Stop Dose Admin Acetaminophen 650 mg 05/26/20 09:47 Tylenol - PO Q4H PRN FEVER Al Hydroxide/Mg Hydroxide 30 ml 05/26/20 09:47 Mylanta Oral Suspension - PO Q6H PRN DYSPEPSIA Amlodipine Besylate 5 mg 05/27/20 10:00 06/04/20 10:37 Norvasc - PO 5 mg DAILY LUCIEN Administration Atorvastatin Calcium 10 mg 05/26/20 22:00 06/03/20 21:36 Lipitor - PO 10 mg HS LUCIEN Administration Guaifenesin 10 ml 05/26/20 09:47 Robitussin - PO Q6H PRN COUGH Ibuprofen 400 mg 05/26/20 09:47 06/04/20 10:38 Motrin - PO 400 mg Q6H PRN Administration Pain level 4-6 Lidocaine 1 patch 05/27/20 10:00 06/04/20 10:38 Lidoderm Patch - TP 1 patch DAILY LUCIEN Administration Loperamide HCl 4 mg 05/26/20 09:47 Imodium - PO Q6H PRN DIARRHEA Loratadine 10 mg 05/27/20 10:00 06/04/20 10:37 Claritin - PO 10 mg DAILY LUCIEN Administration Magnesium Citrate 300 ml 05/26/20 09:47 Citroma - PO Q48H PRN CONSTIPATION Magnesium Hydroxide 30 ml 05/26/20 09:47 Milk Of Magnesia - PO DAILY PRN CONSTIPATION Melatonin 5 mg 05/26/20 22:00 06/03/20 21:36 Melatonin PO 5 mg HS LUCIEN Administration Methocarbamol 500 mg 06/04/20 14:51 Robaxin - PO TID PRN MUSCLE SPASMS Miscellaneous 1 each 05/26/20 22:00 06/03/20 21:36 Lidoderm Patch Removal MC 1 each DAILY@2200 LUCIEN Administration Nicotine 7 mg 05/27/20 10:00 06/04/20 10:38 Nicoderm Patch - TD Not Given DAILY LUCIEN Nicotine Polacrilex 2 mg 05/26/20 09:47 Nicorette Gum - BUC Q2H PRN NICOTINE REPLACEMENT RX Prednisone 10 mg 05/27/20 10:00 06/04/20 10:37 Deltasone - PO 10 mg DAILY LUCIEN Administration Multivit/Folic Acid/Iron 1 tab 05/26/20 10:00 06/04/20 10:38 Vitamins (Sjr) - PO 1 tab DAILY LUCIEN Administration Suvorexant 10 mg 06/02/20 22:00 06/03/20 21:36 Belsomra PO 10 mg HS PRN Administration INSOMNIA Thiamine HCl 100 mg 05/26/20 22:00 06/03/20 21:36 Vitamin B1 - PO 100 mg HS LUCIEN Administration Medication(s) Change(s): No. Current Side Effect: No Lab tests ordered: No Lab tests reviewed: Yes Provider note:: Chart reviewed. 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 Patient continues to take Belsomra 10mg for insomnia. As per nursing staff patient has been participatig in groups and following directions on the unit. Mr. Devine describes his mood as hopeful and continues to focus on becoming a better individual. Total face to face time:: 25 Mental Status Exam - Mental Status Exam Alert and Oriented to: Time, Place, Person Cognitive Function: Good Patient Appearance: Well Groomed Mood: Hopeful Affect: Appropriate Patient Behavior: Appropriate, Cooperative Speech Pattern: Clear, Appropriate Voice Loudness: Normal Thought Process: Intact, Goal Oriented Thought Disorder: Not Present Hallucinations: Denies Suicidal Ideation: Denies Homicidal Ideation: Denies Insight/Judgement: Poor Sleep: Fair Appetite: Fair Muscle strength/Tone: Normal Gait/Station: Normal Psychiatric Treatment Plan - Problem List (1) Alcohol use disorder Current Visit: Yes (2) Cocaine abuse Current Visit: Yes (3) PTSD (post-traumatic stress disorder) Current Visit: No Comment: 1. untreated 2. Pt requests consultation with Psychiatry
[2020-06-04] MEDS: THIAMINE HCL 100 MG TABLET (FP) PO SCH (21:23)
[2020-06-04] MEDS: SUVOREXANT 10 MG TABLET PO PRN (21:23)
[2020-06-04] MEDS: MELATONIN 5 MG TABLETS PO SCH (21:23)
[2020-06-04] MEDS: METHOCARBAMOL 500 MG TABLET PO PRN (21:23)
[2020-06-04] MEDS: LIDOCAINE PATCH REMOVAL MC SCH (21:23)
[2020-06-04] MEDS: ATORVASTATIN CA 10 MG TABLET (FP) PO SCH (21:23)
[2020-06-05] MEDS: PRENATAL VITAMINS W/ FOLIC ACID TABLET (FP) PO SCH (10:55)
[2020-06-05] MEDS: NICOTINE 7 MG/24 HOURS TOPICAL PATCH TD SCH (10:55)
[2020-06-05] MEDS: LORATADINE 10 MG TABLET PO SCH (10:56)
[2020-06-05] MEDS: METHOCARBAMOL 500 MG TABLET PO PRN ×2 (10:56→21:32)
[2020-06-05] MEDS: amLODIPine BESYLATE 5 MG TABLET (FP) PO SCH (10:56)
[2020-06-05] MEDS: predniSONE 10 MG TABLET (UD) PO SCH (10:56)
[2020-06-05] MEDS: LIDOCAINE 5% TOPICAL PATCH TP SCH (10:56)
[2020-06-05] MEDS: ATORVASTATIN CA 10 MG TABLET (FP) PO SCH (21:31)
[2020-06-05] MEDS: THIAMINE HCL 100 MG TABLET (FP) PO SCH (21:31)
[2020-06-05] MEDS: LIDOCAINE PATCH REMOVAL MC SCH (21:31)
[2020-06-05] MEDS: SUVOREXANT 10 MG TABLET PO PRN (21:32)
[2020-06-05] MEDS: MELATONIN 5 MG TABLETS PO SCH (21:39)
[2020-06-06] MEDS: PRENATAL VITAMINS W/ FOLIC ACID TABLET (FP) PO SCH (10:30)
[2020-06-06] MEDS: amLODIPine BESYLATE 5 MG TABLET (FP) PO SCH (10:30)
[2020-06-06] MEDS: LORATADINE 10 MG TABLET PO SCH (10:30)
[2020-06-06] MEDS: predniSONE 10 MG TABLET (UD) PO SCH (10:30)
[2020-06-06] MEDS: LIDOCAINE 5% TOPICAL PATCH TP SCH (10:30)
[2020-06-06] MEDS: NICOTINE 7 MG/24 HOURS TOPICAL PATCH TD SCH (10:31)
[2020-06-06] MEDS: ATORVASTATIN CA 10 MG TABLET (FP) PO SCH (21:29)
[2020-06-06] MEDS: SUVOREXANT 10 MG TABLET PO PRN (21:29)
[2020-06-06] MEDS: MELATONIN 5 MG TABLETS PO SCH (21:29)
[2020-06-06] MEDS: METHOCARBAMOL 500 MG TABLET PO PRN (21:29)
[2020-06-06] MEDS: THIAMINE HCL 100 MG TABLET (FP) PO SCH (21:29)
[2020-06-06] MEDS: LIDOCAINE PATCH REMOVAL MC SCH (21:30)
[2020-06-07] MEDS: PRENATAL VITAMINS W/ FOLIC ACID TABLET (FP) PO SCH (10:14)
[2020-06-07] MEDS: NICOTINE 7 MG/24 HOURS TOPICAL PATCH TD SCH (10:14)
[2020-06-07] MEDS: LORATADINE 10 MG TABLET PO SCH (10:14)
[2020-06-07] MEDS: LIDOCAINE 5% TOPICAL PATCH TP SCH (10:14)
[2020-06-07] MEDS: predniSONE 10 MG TABLET (UD) PO SCH (10:14)
[2020-06-07] MEDS: amLODIPine BESYLATE 5 MG TABLET (FP) PO SCH (10:14)
[2020-06-07] MEDS: METHOCARBAMOL 500 MG TABLET PO PRN (21:32)
[2020-06-07] MEDS: ATORVASTATIN CA 10 MG TABLET (FP) PO SCH (21:32)
[2020-06-07] MEDS: THIAMINE HCL 100 MG TABLET (FP) PO SCH (21:32)
[2020-06-07] MEDS: MELATONIN 5 MG TABLETS PO SCH (21:33)
[2020-06-07] MEDS: LIDOCAINE PATCH REMOVAL MC SCH (21:33)
[2020-06-07] MEDS ORDERED: SUVOREXANT 10 MG TABLET PO PRN (22:00)
[2020-06-08 07:25] VITALS: BP 116/69; PULSE 74; TEMP 96.8
[2020-06-08] MEDS: LORATADINE 10 MG TABLET PO SCH (09:21)
[2020-06-08] MEDS: predniSONE 10 MG TABLET (UD) PO SCH (09:21)
[2020-06-08] MEDS: PRENATAL VITAMINS W/ FOLIC ACID TABLET (FP) PO SCH (09:21)
[2020-06-08] MEDS: LIDOCAINE 5% TOPICAL PATCH TP SCH (09:21)
[2020-06-08] MEDS: amLODIPine BESYLATE 5 MG TABLET (FP) PO SCH (09:21)
[2020-06-08] MEDS: NICOTINE 7 MG/24 HOURS TOPICAL PATCH TD SCH (09:21)
--- NOTE | 2020-06-08 11:09 | DS ---
[facility] Rehab Discharge Summary - [facility] Rehab Discharge Summary Admission Date: 05/26/20 Discharge Date: 06/08/20 - History Present History: Alcohol dependence, Cocaine dependence Pertinent Past History: HTN HLD Acquired Scoliosis Allergic Rhinitis VIT D Deficiency disease Chronic Back pain Sciatica Hernia of Abdominal wall/Umbilical Hernia Ambulates with cane - Discharge Physical Exam Vital Signs: Vital Signs Temperature 96.8 F L 06/08/20 07:24 Pulse Rate 74 06/08/20 07:24 Respiratory Rate 18 06/08/20 07:24 Blood Pressure 116/69 06/08/20 07:24 O2 Sat by Pulse Oximetry (%) 98 06/08/20 07:24 General:WDWN male, nad Cardiac:s1 s2, rrr lungs:ctab Abdomen:soft,+bs,nt,nd MSK:Active FROM, all limbs, ambulates with cane. Skin:no edema, skin intact. Pertinent Admission Physical Exam Findings: unremarkable - Treatment Discharge Condition: Discharge condition good, Rehabilitated safely, Responded well, Outpatient referral accepted Hospital Course: Pt is a 54 y/o male with a hx of RAFAT-alcohol,cocaine admitted to rehab after completing detox on and discharged today after completion. Pt met with his counselor and has been referred to CD aftercare to [facility] to follow up with care. - Medication Discharge Medications: Ambulatory Orders Ergocalciferol [Vitamin D2] 50,000 unit PO ONCE #1 capsule 05/25/20 Amlodipine Besylate 5 mg PO DAILY #14 tablet 06/08/20 Atorvastatin Ca [Lipitor] 10 mg PO HS #14 tablet 06/08/20 Loratadine 10 mg PO DAILY #14 tablet 06/08/20 Prednisone 10 mg PO DAILY #14 tablet 06/08/20 - Medication-Assisted Treatment (MAT) Medication-Assisted Treatment (MAT): No - Discharge Instructions Diet, activity, other medical instructions: Diet:CHRISTINA, low fat diet Activity:oob ad delma Other medical instructions:Follow up with CD aftercare as recommended. Follow up with Primary Care provider Dr. Toledo @ [address] [place] [address] [facility] for medical management. - Diagnosis (1) Alcohol use disorder Current Visit: Yes Status: Chronic (2) HTN (hypertension) Current Visit: Yes Status: Chronic Qualifiers: Hypertension type: essential hypertension Qualified Code(s): I10 - Essential (primary) hypertension (3) HLD (hyperlipidemia) Current Visit: Yes Status: Chronic Qualifiers: Hyperlipidemia type: pure hypertriglyceridemia Qualified Code(s): E78.1 - Pure hyperglyceridemia (4) Sciatica Current Visit: Yes Status: Chronic Qualifiers: Laterality: right Qualified Code(s): M54.31 - Sciatica, right side (5) Acquired scoliosis Current Visit: Yes Status: Chronic (6) Allergic rhinitis Current Visit: Yes Status: Chronic Qualifiers: Allergic rhinitis trigger: unspecified Allergic rhinitis seasonality: unspecified Qualified Code(s): J30.9 - Allergic rhinitis, unspecified (7) Ambulates with cane Current Visit: Yes Status: Chronic (8) Chronic back pain Current Visit: Yes Status: Chronic Qualifiers: Back pain location: low back pain Back pain laterality: midline Sciatica presence: with sciatica Sciatica laterality: sciatica laterality unspecified Qualified Code(s): M54.40 - Lumbago with sciatica, unspecified side; G89.29 - Other chronic pain (9) Cocaine abuse Current Visit: Yes Status: Chronic - Follow-up Referral Minutes to complete discharge: 30 - AMA Did Patient Leave Against Medical Advice: No Additional Comments: Courtesy Rx for Amlodipine 5 mg po daily #14,Prednisone 10 mg po daily #14, Loratadine 10 mg po daily #14, Atorvastatin 10 mg po HS #14 electronically sent to pt's home [facility] pharmacy for sisal picker. Pt reminded to follow up with his PCP for futher management.
== END 2020-06-08 09:45 | disposition home or self-care (01) | DRG 772 ==
LOC: YASAS 14:06 → Y5N 14:07
PROVIDERS: ADMIT Allergy & Immunology; ATTEND Allergy & Immunology
PROC: HZ42ZZZ Group Counseling for Substance Abuse Treatment, Cognitive-Behavioral (ICD-10-PCS; principal; 2020-05-26)
DX: F10.20 Alcohol dependence, uncomplicated (principal); F14.20 Cocaine dependence, uncomplicated; F43.10 Post-traumatic stress disorder, unspecified; G47.00 Insomnia, unspecified; E55.9 Vitamin D deficiency, unspecified; E78.5 Hyperlipidemia, unspecified; I10 Essential (primary) hypertension; J30.9 Allergic rhinitis, unspecified; K42.9 Umbilical hernia without obstruction or gangrene; M54.41 Lumbago with sciatica, right side; G89.29 Other chronic pain; M41.9 Scoliosis, unspecified; M26.609 Unspecified temporomandibular joint disorder, unspecified side; Z99.89 Dependence on other enabling machines and devices; Z59.0 Homelessness
CPT/HCPCS: 82306

== ENCOUNTER 2022-05-13 14:10 | Inpatient (IN) | payer OTHER ==
[2022-05-13 14:52] VITALS: BMI 27.8
[2022-05-13] MEDS ORDERED: BENZOCAINE/MENTHOL (CHLORASEPTIC ) LOZENGE MM PRN (16:22)
[2022-05-13] MEDS ORDERED: chlordiazePOXIDE HCL 25 MG CAPSULE PO PRN (16:22)
[2022-05-13] MEDS ORDERED: IBUPROFEN 400 MG TABLET (FP) PO PRN (16:22)
[2022-05-13] MEDS ORDERED: BISMUTH SUBSALICYLATE 524 MG/30 ML PO PRN (16:22)
[2022-05-13] MEDS ORDERED: ONDANSETRON *ODT* 4 MG TABLET SL PRN (16:22)
[2022-05-13] MEDS ORDERED: LOPERAMIDE HCL 2 MG CAPSULE PO PRN (16:22)
[2022-05-13] MEDS ORDERED: MAGNESIUM CITRATE 300 ML BOTTLE PO PRN (16:22)
[2022-05-13] MEDS ORDERED: ACETAMINOPHEN 325 MG TABLET (FP) PO PRN ×2 (16:22)
[2022-05-13] MEDS ORDERED: MAGNESIUM HYDROX 2400MG/30ML ORAL SUSPENSION 30 ML CUP PO PRN (16:22)
[2022-05-13] MEDS ORDERED: NICOTINE 10 MG CARTRIDGE (INHALER) IH PRN (16:22)
[2022-05-13] MEDS ORDERED: METHOCARBAMOL 500 MG TABLET PO PRN (16:22)
[2022-05-13] MEDS ORDERED: DICYCLOMINE HCL 10 MG CAPSULE PO PRN (16:22)
[2022-05-13] MEDS ORDERED: IBUPROFEN 600 MG TABLET (FP) PO PRN (16:22)
[2022-05-13] MEDS ORDERED: MAG HYDROX/AL HYDROX/SIMETH 30 ML UNIT-DOSE CUP PO PRN (16:22)
[2022-05-13] MEDS ORDERED: ERGOCALCIFEROL (VIT D2) 50,000 UNIT (1.25 MG) CAPSULE PO ONE (16:30)
[2022-05-13] MEDS: amLODIPine BESYLATE 5 MG TABLET (FP) PO SCH (17:54)
[2022-05-13] MEDS: LORATADINE 10 MG TABLET PO SCH (17:55)
[2022-05-13] MEDS: chlordiazePOXIDE HCL 25 MG CAPSULE PO SCH ×2 (17:55→23:40)
[2022-05-13] MEDS: PRENATAL VITAMINS W/ FOLIC ACID TABLET (FP) PO SCH (17:57)
[2022-05-13] MEDS: hydrOXYzine PAMOATE 25 MG CAPSULE (FP) PO SCH ×2 (18:00→23:40)
[2022-05-13] MEDS: predniSONE 10 MG TABLET (UD) PO SCH (19:56)
[2022-05-13] MEDS ORDERED: MELATONIN 5 MG TABLETS PO SCH (22:00)
[2022-05-13] MEDS: THIAMINE HCL 100 MG TABLET (FP) PO SCH (23:40)
[2022-05-13] MEDS: ATORVASTATIN CA 10 MG TABLET (FP) PO SCH (23:40)
[2022-05-14] MEDS: hydrOXYzine PAMOATE 25 MG CAPSULE (FP) PO SCH ×5 (06:24→22:14)
[2022-05-14] MEDS: chlordiazePOXIDE HCL 25 MG CAPSULE PO SCH ×4 (06:24→22:14)
[2022-05-14] MEDS: predniSONE 10 MG TABLET (UD) PO SCH (10:10)
[2022-05-14] MEDS: LORATADINE 10 MG TABLET PO SCH (10:10)
[2022-05-14] MEDS: PRENATAL VITAMINS W/ FOLIC ACID TABLET (FP) PO SCH (10:10)
[2022-05-14] MEDS: amLODIPine BESYLATE 5 MG TABLET (FP) PO SCH (10:10)
[2022-05-14 15:32] LABS: HEMATOCRIT 37.9 % (35.4-49); HEMOGLOBIN 12.4 GM/dL (11.7-16.9); MCH 26.8 pg (25.7-33.7); MCHC 32.9 g/dl (32.0-35.9); MEAN CELL VOLUME 81.5 fl (80-96); MEAN PLT VOLUME 9.1 fl (7.5-11.1); PLATELET COUNT 205 10^3/uL (134-434); RBC 4.65 M/mm3 (4.00-5.60); RDW 15.2 % (11.9-15.9); WHITE BLOOD COUNT 7.1 K/mm3 (4.0-10.0)
[2022-05-14 15:42] LABS: CALCIUM 8.9 mg/dL (8.5-10.1)
[2022-05-14 15:43] LABS: ALBUMIN 3.5 g/dl (3.4-5.0)
[2022-05-14 15:46] LABS: CREATININE 1.3 mg/dL (0.55-1.3); TOT PROT 6.4 g/dl (6.4-8.2)
[2022-05-14 15:47] LABS: BILIRUBIN,TOTAL 0.3 mg/dL (0.2-1)
[2022-05-14 16:35] LABS: HIV INTERPRETATION NEGATIVE (NEGATIVE)
[2022-05-14] MEDS: ATORVASTATIN CA 10 MG TABLET (FP) PO SCH (22:14)
[2022-05-14] MEDS: THIAMINE HCL 100 MG TABLET (FP) PO SCH (22:14)
[2022-05-15] MEDS: chlordiazePOXIDE HCL 25 MG CAPSULE PO SCH ×4 (06:21→22:34)
[2022-05-15] MEDS: hydrOXYzine PAMOATE 25 MG CAPSULE (FP) PO SCH ×5 (06:22→22:34)
[2022-05-15] MEDS: predniSONE 10 MG TABLET (UD) PO SCH (10:09)
[2022-05-15] MEDS: PRENATAL VITAMINS W/ FOLIC ACID TABLET (FP) PO SCH (10:09)
[2022-05-15] MEDS: amLODIPine BESYLATE 5 MG TABLET (FP) PO SCH (10:09)
[2022-05-15] MEDS: LORATADINE 10 MG TABLET PO SCH (10:09)
[2022-05-15] MEDS: THIAMINE HCL 100 MG TABLET (FP) PO SCH (22:34)
[2022-05-15] MEDS: ATORVASTATIN CA 10 MG TABLET (FP) PO SCH (22:34)
[2022-05-15] MEDS: SUVOREXANT 10 MG TABLET PO PRN (22:37)
[2022-05-16] MEDS ORDERED: chlordiazePOXIDE HCL 10 MG CAPSULE PO PRN
[2022-05-16] MEDS: chlordiazePOXIDE HCL 10 MG CAPSULE PO SCH ×4 (05:48→22:27)
[2022-05-16] MEDS: hydrOXYzine PAMOATE 25 MG CAPSULE (FP) PO SCH ×5 (05:48→22:28)
[2022-05-16] MEDS: predniSONE 10 MG TABLET (UD) PO SCH (11:03)
[2022-05-16] MEDS: PRENATAL VITAMINS W/ FOLIC ACID TABLET (FP) PO SCH (11:03)
[2022-05-16] MEDS: LORATADINE 10 MG TABLET PO SCH (11:03)
[2022-05-16] MEDS: amLODIPine BESYLATE 5 MG TABLET (FP) PO SCH (11:55)
[2022-05-16] MEDS: ATORVASTATIN CA 10 MG TABLET (FP) PO SCH (22:27)
[2022-05-16] MEDS: THIAMINE HCL 100 MG TABLET (FP) PO SCH (22:27)
[2022-05-16] MEDS: SUVOREXANT 10 MG TABLET PO PRN (22:28)
[2022-05-17] MEDS: hydrOXYzine PAMOATE 25 MG CAPSULE (FP) PO SCH ×5 (05:55→23:32)
[2022-05-17] MEDS: chlordiazePOXIDE HCL 10 MG CAPSULE PO SCH ×2 (05:55→17:48)
[2022-05-17] MEDS: LORATADINE 10 MG TABLET PO SCH (10:13)
[2022-05-17] MEDS: amLODIPine BESYLATE 5 MG TABLET (FP) PO SCH (10:13)
[2022-05-17] MEDS: predniSONE 10 MG TABLET (UD) PO SCH (10:13)
[2022-05-17] MEDS: PRENATAL VITAMINS W/ FOLIC ACID TABLET (FP) PO SCH (10:13)
[2022-05-17] MEDS: SUVOREXANT 10 MG TABLET PO PRN (21:42)
[2022-05-17] MEDS: THIAMINE HCL 100 MG TABLET (FP) PO SCH (23:32)
[2022-05-17] MEDS: ATORVASTATIN CA 10 MG TABLET (FP) PO SCH (23:32)
[2022-05-18] MEDS ORDERED: chlordiazePOXIDE HCL 10 MG CAPSULE PO ONE (05:00)
[2022-05-18] MEDS: hydrOXYzine PAMOATE 25 MG CAPSULE (FP) PO SCH ×2 (05:08→10:10)
[2022-05-18 09:40] VITALS: PULSE 99
[2022-05-18] MEDS: predniSONE 10 MG TABLET (UD) PO SCH (10:10)
[2022-05-18] MEDS: amLODIPine BESYLATE 5 MG TABLET (FP) PO SCH (10:10)
[2022-05-18] MEDS: LORATADINE 10 MG TABLET PO SCH (10:10)
[2022-05-18] MEDS: PRENATAL VITAMINS W/ FOLIC ACID TABLET (FP) PO SCH (10:10)
[2022-05-18 13:15] VITALS: BP 106/67; RESP 18; TEMP 98.2
== END 2022-05-18 13:10 | disposition other institution (70) | DRG 773 ==
LOC: YASAS 14:10 → Y6N 16:37
PROVIDERS: ADMIT Allergy & Immunology; ATTEND Surgery
PROC: HZ2ZZZZ Detoxification Services for Substance Abuse Treatment (ICD-10-PCS; principal; 2022-05-13)
DX: F10.230 Alcohol dependence with withdrawal, uncomplicated (principal); F11.20 Opioid dependence, uncomplicated; F14.20 Cocaine dependence, uncomplicated; F13.20 Sedative, hypnotic or anxiolytic dependence, uncomplicated; F43.10 Post-traumatic stress disorder, unspecified; I10 Essential (primary) hypertension; E78.5 Hyperlipidemia, unspecified; E55.9 Vitamin D deficiency, unspecified; L43.9 Lichen planus, unspecified; M26.629 Arthralgia of temporomandibular joint, unspecified side; Z87.19 Personal history of other diseases of the digestive system; Z56.0 Unemployment, unspecified; Z59.00 Homelessness unspecified
CPT/HCPCS: 36415; 80053; 85027; 86780; 87389; 87811; C9803-CS; U0003; U0005

== ENCOUNTER 2022-05-18 13:16 | Inpatient (IN) | payer OTHER ==
[2022-05-18] MEDS ORDERED: BENZOCAINE/MENTHOL (CHLORASEPTIC ) LOZENGE MM PRN (15:47)
[2022-05-18] MEDS ORDERED: LOPERAMIDE HCL 2 MG CAPSULE PO PRN (15:47)
[2022-05-18] MEDS ORDERED: NICOTINE 10 MG CARTRIDGE (INHALER) IH PRN (15:47)
[2022-05-18] MEDS ORDERED: MAGNESIUM HYDROX 2400MG/30ML ORAL SUSPENSION 30 ML CUP PO PRN (15:47)
[2022-05-18] MEDS ORDERED: P-EPHED 60MG/TRIPROLIDI 2.5MG TABLET PO PRN (15:47)
[2022-05-18] MEDS ORDERED: MAGNESIUM CITRATE 300 ML BOTTLE PO PRN (15:47)
[2022-05-18] MEDS ORDERED: guaiFENesin 200 MG/10 ML 10 ML UNIT-DOSE CUPS PO PRN (15:47)
[2022-05-18] MEDS ORDERED: ACETAMINOPHEN 325 MG TABLET (FP) PO PRN (15:47)
[2022-05-18] MEDS: ATORVASTATIN CA 10 MG TABLET (FP) PO SCH (21:31)
[2022-05-18] MEDS: MELATONIN 5 MG TABLETS PO SCH (21:31)
[2022-05-18] MEDS: THIAMINE HCL 100 MG TABLET (FP) PO SCH (21:31)
[2022-05-19] MEDS: PRENATAL VITAMINS W/ FOLIC ACID TABLET (FP) PO SCH (10:02)
[2022-05-19] MEDS: amLODIPine BESYLATE 5 MG TABLET (FP) PO SCH (10:03)
[2022-05-19] MEDS: LORATADINE 10 MG TABLET PO SCH (10:03)
[2022-05-19] MEDS: NICOTINE 7 MG/24 HOURS TOPICAL PATCH TD SCH (10:03)
[2022-05-19] MEDS: predniSONE 10 MG TABLET (UD) PO SCH (12:00)
[2022-05-19] MEDS: IBUPROFEN 400 MG TABLET (FP) PO PRN (20:08)
[2022-05-19] MEDS: ATORVASTATIN CA 10 MG TABLET (FP) PO SCH (21:10)
[2022-05-19] MEDS: THIAMINE HCL 100 MG TABLET (FP) PO SCH (21:10)
[2022-05-19] MEDS: MELATONIN 5 MG TABLETS PO SCH (21:10)
[2022-05-20] MEDS: NICOTINE 7 MG/24 HOURS TOPICAL PATCH TD SCH (10:25)
[2022-05-20] MEDS: PRENATAL VITAMINS W/ FOLIC ACID TABLET (FP) PO SCH (10:26)
[2022-05-20] MEDS: LORATADINE 10 MG TABLET PO SCH (10:26)
[2022-05-20] MEDS: amLODIPine BESYLATE 5 MG TABLET (FP) PO SCH (10:26)
[2022-05-20] MEDS: predniSONE 10 MG TABLET (UD) PO SCH (10:27)
[2022-05-20] MEDS: LIDOCAINE 5% TOPICAL PATCH TP SCH (14:47)
[2022-05-20] MEDS: MELATONIN 5 MG TABLETS PO SCH (21:30)
[2022-05-20] MEDS: ATORVASTATIN CA 10 MG TABLET (FP) PO SCH (21:31)
[2022-05-20] MEDS: THIAMINE HCL 100 MG TABLET (FP) PO SCH (21:31)
[2022-05-20] MEDS: LIDOCAINE PATCH REMOVAL MC SCH (21:57)
[2022-05-21] MEDS: LORATADINE 10 MG TABLET PO SCH (09:36)
[2022-05-21] MEDS: NICOTINE 7 MG/24 HOURS TOPICAL PATCH TD SCH (09:37)
[2022-05-21] MEDS: amLODIPine BESYLATE 5 MG TABLET (FP) PO SCH (09:37)
[2022-05-21] MEDS: LIDOCAINE 5% TOPICAL PATCH TP SCH (09:37)
[2022-05-21] MEDS: PRENATAL VITAMINS W/ FOLIC ACID TABLET (FP) PO SCH (09:37)
[2022-05-21] MEDS: predniSONE 10 MG TABLET (UD) PO SCH (09:38)
[2022-05-21] MEDS: LIDOCAINE PATCH REMOVAL MC SCH (21:26)
[2022-05-21] MEDS: ATORVASTATIN CA 10 MG TABLET (FP) PO SCH (21:26)
[2022-05-21] MEDS: MELATONIN 5 MG TABLETS PO SCH (21:26)
[2022-05-21] MEDS: THIAMINE HCL 100 MG TABLET (FP) PO SCH (21:26)
[2022-05-21] MEDS: hydrOXYzine PAMOATE 25 MG CAPSULE (FP) PO PRN (21:27)
[2022-05-21] MEDS ORDERED: SUVOREXANT 10 MG TABLET PO PRN (22:00)
[2022-05-22] MEDS: amLODIPine BESYLATE 5 MG TABLET (FP) PO SCH (09:54)
[2022-05-22] MEDS: LORATADINE 10 MG TABLET PO SCH (09:54)
[2022-05-22] MEDS: predniSONE 10 MG TABLET (UD) PO SCH (09:54)
[2022-05-22] MEDS: PRENATAL VITAMINS W/ FOLIC ACID TABLET (FP) PO SCH (09:54)
[2022-05-22] MEDS: LIDOCAINE 5% TOPICAL PATCH TP SCH (09:55)
[2022-05-22] MEDS: NICOTINE 7 MG/24 HOURS TOPICAL PATCH TD SCH (09:56)
[2022-05-22] MEDS: IBUPROFEN 400 MG TABLET (FP) PO PRN (15:27)
[2022-05-22] MEDS: ATORVASTATIN CA 10 MG TABLET (FP) PO SCH (21:28)
[2022-05-22] MEDS: LIDOCAINE PATCH REMOVAL MC SCH (21:28)
[2022-05-22] MEDS: THIAMINE HCL 100 MG TABLET (FP) PO SCH (21:28)
[2022-05-22] MEDS: MELATONIN 5 MG TABLETS PO SCH (21:28)
[2022-05-23] MEDS: NICOTINE 7 MG/24 HOURS TOPICAL PATCH TD SCH (10:12)
[2022-05-23] MEDS: PRENATAL VITAMINS W/ FOLIC ACID TABLET (FP) PO SCH (10:12)
[2022-05-23] MEDS: LORATADINE 10 MG TABLET PO SCH (10:13)
[2022-05-23] MEDS: LIDOCAINE 5% TOPICAL PATCH TP SCH (10:13)
[2022-05-23] MEDS: predniSONE 10 MG TABLET (UD) PO SCH (10:13)
[2022-05-23] MEDS: amLODIPine BESYLATE 5 MG TABLET (FP) PO SCH (10:13)
[2022-05-23] MEDS: ATORVASTATIN CA 10 MG TABLET (FP) PO SCH (21:24)
[2022-05-23] MEDS: MELATONIN 5 MG TABLETS PO SCH (21:24)
[2022-05-23] MEDS: THIAMINE HCL 100 MG TABLET (FP) PO SCH (21:24)
[2022-05-23] MEDS: hydrOXYzine PAMOATE 25 MG CAPSULE (FP) PO PRN (21:25)
[2022-05-23] MEDS: IBUPROFEN 400 MG TABLET (FP) PO PRN (21:35)
[2022-05-23] MEDS: LIDOCAINE PATCH REMOVAL MC SCH (21:43)
[2022-05-24] MEDS: IBUPROFEN 400 MG TABLET (FP) PO PRN (06:11)
[2022-05-24] MEDS: LORATADINE 10 MG TABLET PO SCH (10:00)
[2022-05-24] MEDS: predniSONE 10 MG TABLET (UD) PO SCH (10:00)
[2022-05-24] MEDS: amLODIPine BESYLATE 5 MG TABLET (FP) PO SCH (10:00)
[2022-05-24] MEDS: LIDOCAINE 5% TOPICAL PATCH TP SCH (10:01)
[2022-05-24] MEDS: PRENATAL VITAMINS W/ FOLIC ACID TABLET (FP) PO SCH (10:01)
[2022-05-24] MEDS: NICOTINE 7 MG/24 HOURS TOPICAL PATCH TD SCH (10:01)
[2022-05-24] MEDS: THIAMINE HCL 100 MG TABLET (FP) PO SCH (21:27)
[2022-05-24] MEDS: ATORVASTATIN CA 10 MG TABLET (FP) PO SCH (21:27)
[2022-05-24] MEDS: hydrOXYzine PAMOATE 25 MG CAPSULE (FP) PO PRN (21:27)
[2022-05-24] MEDS: SILVER SULFADIAZINE 1% TOP CREAM 400 GM JAR TP SCH (21:27)
[2022-05-24] MEDS: MELATONIN 5 MG TABLETS PO SCH (21:27)
[2022-05-24] MEDS: LIDOCAINE PATCH REMOVAL MC SCH (21:31)
[2022-05-24] MEDS ORDERED: SUVOREXANT 10 MG TABLET PO PRN (22:00)
[2022-05-25] MEDS: amLODIPine BESYLATE 5 MG TABLET (FP) PO SCH (10:10)
[2022-05-25] MEDS: PRENATAL VITAMINS W/ FOLIC ACID TABLET (FP) PO SCH (10:10)
[2022-05-25] MEDS: LIDOCAINE 5% TOPICAL PATCH TP SCH (10:10)
[2022-05-25] MEDS: NICOTINE 7 MG/24 HOURS TOPICAL PATCH TD SCH (10:10)
[2022-05-25] MEDS: LORATADINE 10 MG TABLET PO SCH (10:10)
[2022-05-25] MEDS: SILVER SULFADIAZINE 1% TOP CREAM 400 GM JAR TP SCH ×2 (10:10→21:23)
[2022-05-25] MEDS: predniSONE 10 MG TABLET (UD) PO SCH (10:10)
[2022-05-25] MEDS: THIAMINE HCL 100 MG TABLET (FP) PO SCH (21:22)
[2022-05-25] MEDS: LIDOCAINE PATCH REMOVAL MC SCH (21:22)
[2022-05-25] MEDS: MELATONIN 5 MG TABLETS PO SCH (21:22)
[2022-05-25] MEDS: ATORVASTATIN CA 10 MG TABLET (FP) PO SCH (21:22)
[2022-05-26] MEDS: NICOTINE 7 MG/24 HOURS TOPICAL PATCH TD SCH (09:47)
[2022-05-26] MEDS: SILVER SULFADIAZINE 1% TOP CREAM 400 GM JAR TP SCH ×2 (09:47→21:32)
[2022-05-26] MEDS: PRENATAL VITAMINS W/ FOLIC ACID TABLET (FP) PO SCH (09:47)
[2022-05-26] MEDS: LORATADINE 10 MG TABLET PO SCH (09:47)
[2022-05-26] MEDS: amLODIPine BESYLATE 5 MG TABLET (FP) PO SCH (09:47)
[2022-05-26] MEDS: predniSONE 10 MG TABLET (UD) PO SCH (09:48)
[2022-05-26] MEDS: LIDOCAINE 5% TOPICAL PATCH TP SCH (09:48)
[2022-05-26] MEDS: LIDOCAINE PATCH REMOVAL MC SCH (21:31)
[2022-05-26] MEDS: hydrOXYzine PAMOATE 25 MG CAPSULE (FP) PO PRN (21:32)
[2022-05-26] MEDS: MELATONIN 5 MG TABLETS PO SCH (21:32)
[2022-05-26] MEDS: THIAMINE HCL 100 MG TABLET (FP) PO SCH (21:32)
[2022-05-26] MEDS: ATORVASTATIN CA 10 MG TABLET (FP) PO SCH (21:32)
[2022-05-27] MEDS: SILVER SULFADIAZINE 1% TOP CREAM 400 GM JAR TP SCH ×2 (09:51→22:13)
[2022-05-27] MEDS: PRENATAL VITAMINS W/ FOLIC ACID TABLET (FP) PO SCH (09:52)
[2022-05-27] MEDS: LORATADINE 10 MG TABLET PO SCH (09:52)
[2022-05-27] MEDS: predniSONE 10 MG TABLET (UD) PO SCH (09:52)
[2022-05-27] MEDS: LIDOCAINE 5% TOPICAL PATCH TP SCH (09:52)
[2022-05-27] MEDS: amLODIPine BESYLATE 5 MG TABLET (FP) PO SCH (09:52)
[2022-05-27] MEDS: NICOTINE 7 MG/24 HOURS TOPICAL PATCH TD SCH (09:52)
[2022-05-27] MEDS: ATORVASTATIN CA 10 MG TABLET (FP) PO SCH (21:29)
[2022-05-27] MEDS: THIAMINE HCL 100 MG TABLET (FP) PO SCH (21:29)
[2022-05-27] MEDS: hydrOXYzine PAMOATE 25 MG CAPSULE (FP) PO PRN (21:29)
[2022-05-27] MEDS: MELATONIN 5 MG TABLETS PO SCH (21:29)
[2022-05-27] MEDS: COLLOIDAL OATMEAL 1 BAR EACH TP PRN (21:29)
[2022-05-27] MEDS: LIDOCAINE PATCH REMOVAL MC SCH (21:30)
[2022-05-27] MEDS ORDERED: SUVOREXANT 15 MG TABLET PO PRN (22:00)
[2022-05-28] MEDS: amLODIPine BESYLATE 5 MG TABLET (FP) PO SCH (09:57)
[2022-05-28] MEDS: NICOTINE 7 MG/24 HOURS TOPICAL PATCH TD SCH (09:57)
[2022-05-28] MEDS: LIDOCAINE 5% TOPICAL PATCH TP SCH (09:57)
[2022-05-28] MEDS: PRENATAL VITAMINS W/ FOLIC ACID TABLET (FP) PO SCH (09:57)
[2022-05-28] MEDS: predniSONE 10 MG TABLET (UD) PO SCH (09:57)
[2022-05-28] MEDS: LORATADINE 10 MG TABLET PO SCH (09:57)
[2022-05-28] MEDS: SILVER SULFADIAZINE 1% TOP CREAM 400 GM JAR TP SCH ×2 (09:57→21:46)
[2022-05-28] MEDS: MELATONIN 5 MG TABLETS PO SCH (21:45)
[2022-05-28] MEDS: THIAMINE HCL 100 MG TABLET (FP) PO SCH (21:46)
[2022-05-28] MEDS: ATORVASTATIN CA 10 MG TABLET (FP) PO SCH (21:46)
[2022-05-28] MEDS: hydrOXYzine PAMOATE 25 MG CAPSULE (FP) PO PRN (21:46)
[2022-05-28] MEDS: LIDOCAINE PATCH REMOVAL MC SCH (22:20)
[2022-05-29] MEDS: NICOTINE 7 MG/24 HOURS TOPICAL PATCH TD SCH (10:05)
[2022-05-29] MEDS: PRENATAL VITAMINS W/ FOLIC ACID TABLET (FP) PO SCH (10:05)
[2022-05-29] MEDS: LORATADINE 10 MG TABLET PO SCH (10:05)
[2022-05-29] MEDS: LIDOCAINE 5% TOPICAL PATCH TP SCH (10:05)
[2022-05-29] MEDS: amLODIPine BESYLATE 5 MG TABLET (FP) PO SCH (10:05)
[2022-05-29] MEDS: predniSONE 10 MG TABLET (UD) PO SCH (10:05)
[2022-05-29] MEDS: SILVER SULFADIAZINE 1% TOP CREAM 400 GM JAR TP SCH ×2 (10:06→21:18)
[2022-05-29] MEDS: MAG HYDROX/AL HYDROX/SIMETH 30 ML UNIT-DOSE CUP PO PRN (10:07)
[2022-05-29] MEDS: MELATONIN 5 MG TABLETS PO SCH (21:17)
[2022-05-29] MEDS: THIAMINE HCL 100 MG TABLET (FP) PO SCH (21:17)
[2022-05-29] MEDS: hydrOXYzine PAMOATE 25 MG CAPSULE (FP) PO PRN (21:17)
[2022-05-29] MEDS: LIDOCAINE PATCH REMOVAL MC SCH (22:22)
[2022-05-29] MEDS: ATORVASTATIN CA 10 MG TABLET (FP) PO SCH (22:23)
[2022-05-30] MEDS: NICOTINE 7 MG/24 HOURS TOPICAL PATCH TD SCH (10:34)
[2022-05-30] MEDS: PRENATAL VITAMINS W/ FOLIC ACID TABLET (FP) PO SCH (10:34)
[2022-05-30] MEDS: LIDOCAINE 5% TOPICAL PATCH TP SCH (10:34)
[2022-05-30] MEDS: amLODIPine BESYLATE 5 MG TABLET (FP) PO SCH (10:35)
[2022-05-30] MEDS: predniSONE 10 MG TABLET (UD) PO SCH (10:35)
[2022-05-30] MEDS: SILVER SULFADIAZINE 1% TOP CREAM 400 GM JAR TP SCH (10:35)
[2022-05-30] MEDS: LORATADINE 10 MG TABLET PO SCH (11:03)
[2022-05-30] MEDS: MELATONIN 5 MG TABLETS PO SCH (21:50)
[2022-05-30] MEDS: THIAMINE HCL 100 MG TABLET (FP) PO SCH (21:50)
[2022-05-30] MEDS: ATORVASTATIN CA 10 MG TABLET (FP) PO SCH (21:50)
[2022-05-30] MEDS: hydrOXYzine PAMOATE 25 MG CAPSULE (FP) PO PRN (21:50)
[2022-05-30] MEDS ORDERED: SUVOREXANT 15 MG TABLET PO PRN (22:00)
[2022-05-30] MEDS: LIDOCAINE PATCH REMOVAL MC SCH (22:38)
[2022-05-31] MEDS: PRENATAL VITAMINS W/ FOLIC ACID TABLET (FP) PO SCH (10:03)
[2022-05-31] MEDS: predniSONE 10 MG TABLET (UD) PO SCH (10:04)
[2022-05-31] MEDS: amLODIPine BESYLATE 5 MG TABLET (FP) PO SCH (10:04)
[2022-05-31] MEDS: LORATADINE 10 MG TABLET PO SCH (10:04)
[2022-05-31] MEDS: LIDOCAINE 5% TOPICAL PATCH TP SCH (10:04)
[2022-05-31] MEDS: NICOTINE 7 MG/24 HOURS TOPICAL PATCH TD SCH (10:05)
[2022-05-31] MEDS: hydrOXYzine PAMOATE 25 MG CAPSULE (FP) PO PRN (21:31)
[2022-05-31] MEDS: MELATONIN 5 MG TABLETS PO SCH (21:32)
[2022-05-31] MEDS: ATORVASTATIN CA 10 MG TABLET (FP) PO SCH (21:33)
[2022-05-31] MEDS: THIAMINE HCL 100 MG TABLET (FP) PO SCH (21:33)
[2022-05-31] MEDS: SILVER SULFADIAZINE 1% TOP CREAM 50 GM JAR TP SCH (21:34)
[2022-05-31] MEDS: LIDOCAINE PATCH REMOVAL MC SCH (21:55)
[2022-06-01] MEDS: PRENATAL VITAMINS W/ FOLIC ACID TABLET (FP) PO SCH (10:11)
[2022-06-01] MEDS: NICOTINE 7 MG/24 HOURS TOPICAL PATCH TD SCH (10:12)
[2022-06-01] MEDS: LIDOCAINE 5% TOPICAL PATCH TP SCH (10:12)
[2022-06-01] MEDS: LORATADINE 10 MG TABLET PO SCH (10:13)
[2022-06-01] MEDS: predniSONE 10 MG TABLET (UD) PO SCH (10:13)
[2022-06-01] MEDS: amLODIPine BESYLATE 5 MG TABLET (FP) PO SCH (10:13)
[2022-06-01] MEDS: SILVER SULFADIAZINE 1% TOP CREAM 50 GM JAR TP SCH ×2 (10:13→22:07)
[2022-06-01] MEDS: IBUPROFEN 400 MG TABLET (FP) PO PRN (10:15)
[2022-06-01] MEDS: hydrOXYzine PAMOATE 25 MG CAPSULE (FP) PO PRN ×2 (10:15→21:48)
[2022-06-01] MEDS: ATORVASTATIN CA 10 MG TABLET (FP) PO SCH (21:47)
[2022-06-01] MEDS: MELATONIN 5 MG TABLETS PO SCH (21:47)
[2022-06-01] MEDS: THIAMINE HCL 100 MG TABLET (FP) PO SCH (21:47)
[2022-06-01] MEDS: LIDOCAINE PATCH REMOVAL MC SCH (22:06)
[2022-06-02] MEDS: LIDOCAINE 5% TOPICAL PATCH TP SCH (09:53)
[2022-06-02] MEDS: NICOTINE 7 MG/24 HOURS TOPICAL PATCH TD SCH (09:53)
[2022-06-02] MEDS: LORATADINE 10 MG TABLET PO SCH (09:53)
[2022-06-02] MEDS: amLODIPine BESYLATE 5 MG TABLET (FP) PO SCH (09:53)
[2022-06-02] MEDS: predniSONE 10 MG TABLET (UD) PO SCH (09:54)
[2022-06-02] MEDS: PRENATAL VITAMINS W/ FOLIC ACID TABLET (FP) PO SCH (09:54)
[2022-06-02] MEDS: SILVER SULFADIAZINE 1% TOP CREAM 50 GM JAR TP SCH ×2 (09:54→21:43)
[2022-06-02] MEDS: COLLOIDAL OATMEAL 1 BAR EACH TP PRN (09:55)
[2022-06-02] MEDS: THIAMINE HCL 100 MG TABLET (FP) PO SCH (21:42)
[2022-06-02] MEDS: MELATONIN 5 MG TABLETS PO SCH (21:42)
[2022-06-02] MEDS: ATORVASTATIN CA 10 MG TABLET (FP) PO SCH (21:42)
[2022-06-02] MEDS ORDERED: SUVOREXANT 15 MG TABLET PO PRN (22:00)
[2022-06-02] MEDS: LIDOCAINE PATCH REMOVAL MC SCH (22:46)
[2022-06-03] MEDS: amLODIPine BESYLATE 5 MG TABLET (FP) PO SCH (10:06)
[2022-06-03] MEDS: PRENATAL VITAMINS W/ FOLIC ACID TABLET (FP) PO SCH (10:06)
[2022-06-03] MEDS: predniSONE 10 MG TABLET (UD) PO SCH (10:06)
[2022-06-03] MEDS: LORATADINE 10 MG TABLET PO SCH (10:06)
[2022-06-03] MEDS: NICOTINE 7 MG/24 HOURS TOPICAL PATCH TD SCH (10:06)
[2022-06-03] MEDS: LIDOCAINE 5% TOPICAL PATCH TP SCH (10:07)
[2022-06-03] MEDS: SILVER SULFADIAZINE 1% TOP CREAM 50 GM JAR TP SCH ×2 (10:07→21:36)
[2022-06-03] MEDS: MAG HYDROX/AL HYDROX/SIMETH 30 ML UNIT-DOSE CUP PO PRN (10:09)
[2022-06-03] MEDS: LIDOCAINE PATCH REMOVAL MC SCH (21:34)
[2022-06-03] MEDS: THIAMINE HCL 100 MG TABLET (FP) PO SCH (21:35)
[2022-06-03] MEDS: hydrOXYzine PAMOATE 25 MG CAPSULE (FP) PO PRN (21:35)
[2022-06-03] MEDS: ATORVASTATIN CA 10 MG TABLET (FP) PO SCH (21:35)
[2022-06-03] MEDS: MELATONIN 5 MG TABLETS PO SCH (21:36)
[2022-06-04] MEDS: PRENATAL VITAMINS W/ FOLIC ACID TABLET (FP) PO SCH (09:59)
[2022-06-04] MEDS: predniSONE 10 MG TABLET (UD) PO SCH (10:00)
[2022-06-04] MEDS: SILVER SULFADIAZINE 1% TOP CREAM 50 GM JAR TP SCH ×2 (10:00→21:48)
[2022-06-04] MEDS: LORATADINE 10 MG TABLET PO SCH (10:00)
[2022-06-04] MEDS: LIDOCAINE 5% TOPICAL PATCH TP SCH (10:00)
[2022-06-04] MEDS: amLODIPine BESYLATE 5 MG TABLET (FP) PO SCH (10:00)
[2022-06-04] MEDS: NICOTINE 7 MG/24 HOURS TOPICAL PATCH TD SCH (10:01)
[2022-06-04] MEDS: hydrOXYzine PAMOATE 25 MG CAPSULE (FP) PO PRN (10:01)
[2022-06-04] MEDS: LIDOCAINE PATCH REMOVAL MC SCH (21:47)
[2022-06-04] MEDS: THIAMINE HCL 100 MG TABLET (FP) PO SCH (21:48)
[2022-06-04] MEDS: ATORVASTATIN CA 10 MG TABLET (FP) PO SCH (21:48)
[2022-06-04] MEDS: MELATONIN 5 MG TABLETS PO SCH (21:51)
[2022-06-05] MEDS: LORATADINE 10 MG TABLET PO SCH (10:23)
[2022-06-05] MEDS: amLODIPine BESYLATE 5 MG TABLET (FP) PO SCH (10:23)
[2022-06-05] MEDS: PRENATAL VITAMINS W/ FOLIC ACID TABLET (FP) PO SCH (10:23)
[2022-06-05] MEDS: predniSONE 10 MG TABLET (UD) PO SCH (10:24)
[2022-06-05] MEDS: NICOTINE 7 MG/24 HOURS TOPICAL PATCH TD SCH (10:26)
[2022-06-05] MEDS: LIDOCAINE 5% TOPICAL PATCH TP SCH (10:26)
[2022-06-05] MEDS: SILVER SULFADIAZINE 1% TOP CREAM 50 GM JAR TP SCH ×2 (10:27→21:38)
[2022-06-05] MEDS: THIAMINE HCL 100 MG TABLET (FP) PO SCH (21:38)
[2022-06-05] MEDS: LIDOCAINE PATCH REMOVAL MC SCH (21:38)
[2022-06-05] MEDS: ATORVASTATIN CA 10 MG TABLET (FP) PO SCH (21:38)
[2022-06-05] MEDS: SUVOREXANT 15 MG TABLET PO PRN (21:40)
[2022-06-05] MEDS: MELATONIN 5 MG TABLETS PO SCH (21:41)
[2022-06-06] MEDS: amLODIPine BESYLATE 5 MG TABLET (FP) PO SCH (10:06)
[2022-06-06] MEDS: PRENATAL VITAMINS W/ FOLIC ACID TABLET (FP) PO SCH (10:06)
[2022-06-06] MEDS: NICOTINE 7 MG/24 HOURS TOPICAL PATCH TD SCH (10:06)
[2022-06-06] MEDS: LORATADINE 10 MG TABLET PO SCH (10:06)
[2022-06-06] MEDS: SILVER SULFADIAZINE 1% TOP CREAM 50 GM JAR TP SCH ×2 (10:07→21:39)
[2022-06-06] MEDS: LIDOCAINE 5% TOPICAL PATCH TP SCH (10:08)
[2022-06-06] MEDS: predniSONE 10 MG TABLET (UD) PO SCH (10:08)
[2022-06-06] MEDS: MELATONIN 5 MG TABLETS PO SCH (21:38)
[2022-06-06] MEDS: THIAMINE HCL 100 MG TABLET (FP) PO SCH (21:39)
[2022-06-06] MEDS: ATORVASTATIN CA 10 MG TABLET (FP) PO SCH (21:39)
[2022-06-06] MEDS: hydrOXYzine PAMOATE 25 MG CAPSULE (FP) PO PRN (21:39)
[2022-06-06] MEDS: LIDOCAINE PATCH REMOVAL MC SCH (21:40)
[2022-06-07 07:02] VITALS: TEMP 97.3
[2022-06-07] MEDS: LIDOCAINE 5% TOPICAL PATCH TP SCH (09:54)
[2022-06-07] MEDS: SILVER SULFADIAZINE 1% TOP CREAM 50 GM JAR TP SCH ×2 (09:54→21:33)
[2022-06-07] MEDS: PRENATAL VITAMINS W/ FOLIC ACID TABLET (FP) PO SCH (09:54)
[2022-06-07] MEDS: NICOTINE 7 MG/24 HOURS TOPICAL PATCH TD SCH (09:54)
[2022-06-07] MEDS: amLODIPine BESYLATE 5 MG TABLET (FP) PO SCH (09:54)
[2022-06-07] MEDS: predniSONE 10 MG TABLET (UD) PO SCH (09:54)
[2022-06-07] MEDS: LORATADINE 10 MG TABLET PO SCH (09:54)
[2022-06-07] MEDS: ATORVASTATIN CA 10 MG TABLET (FP) PO SCH (21:32)
[2022-06-07] MEDS: MELATONIN 5 MG TABLETS PO SCH (21:32)
[2022-06-07] MEDS: SUVOREXANT 15 MG TABLET PO PRN (21:32)
[2022-06-07] MEDS: LIDOCAINE PATCH REMOVAL MC SCH (21:32)
[2022-06-07] MEDS: THIAMINE HCL 100 MG TABLET (FP) PO SCH (21:33)
[2022-06-08] MEDS: COLLOIDAL OATMEAL 1 BAR EACH TP PRN (05:54)
[2022-06-08] MEDS: LIDOCAINE 5% TOPICAL PATCH TP SCH (10:05)
[2022-06-08] MEDS: NICOTINE 7 MG/24 HOURS TOPICAL PATCH TD SCH (10:05)
[2022-06-08] MEDS: PRENATAL VITAMINS W/ FOLIC ACID TABLET (FP) PO SCH (10:05)
[2022-06-08] MEDS: amLODIPine BESYLATE 5 MG TABLET (FP) PO SCH (10:06)
[2022-06-08] MEDS: predniSONE 10 MG TABLET (UD) PO SCH (10:06)
[2022-06-08] MEDS: SILVER SULFADIAZINE 1% TOP CREAM 50 GM JAR TP SCH ×2 (10:06→21:19)
[2022-06-08] MEDS: LORATADINE 10 MG TABLET PO SCH (10:06)
[2022-06-08] MEDS: LIDOCAINE PATCH REMOVAL MC SCH (21:18)
[2022-06-08] MEDS: ATORVASTATIN CA 10 MG TABLET (FP) PO SCH (21:18)
[2022-06-08] MEDS: THIAMINE HCL 100 MG TABLET (FP) PO SCH (21:18)
[2022-06-08] MEDS: hydrOXYzine PAMOATE 25 MG CAPSULE (FP) PO PRN (21:18)
[2022-06-08] MEDS: MELATONIN 5 MG TABLETS PO SCH (21:19)
[2022-06-08] MEDS ORDERED: SUVOREXANT 15 MG TABLET PO PRN (22:00)
[2022-06-09] MEDS: PRENATAL VITAMINS W/ FOLIC ACID TABLET (FP) PO SCH (10:19)
[2022-06-09] MEDS: LORATADINE 10 MG TABLET PO SCH (10:19)
[2022-06-09] MEDS: amLODIPine BESYLATE 5 MG TABLET (FP) PO SCH (10:19)
[2022-06-09] MEDS: LIDOCAINE 5% TOPICAL PATCH TP SCH (10:20)
[2022-06-09] MEDS: SILVER SULFADIAZINE 1% TOP CREAM 50 GM JAR TP SCH ×2 (10:20→22:07)
[2022-06-09] MEDS: NICOTINE 7 MG/24 HOURS TOPICAL PATCH TD SCH (10:20)
[2022-06-09] MEDS: predniSONE 10 MG TABLET (UD) PO SCH (10:20)
[2022-06-09] MEDS: LIDOCAINE PATCH REMOVAL MC SCH (22:06)
[2022-06-09] MEDS: MELATONIN 5 MG TABLETS PO SCH (22:07)
[2022-06-09] MEDS: ATORVASTATIN CA 10 MG TABLET (FP) PO SCH (22:07)
[2022-06-09] MEDS: THIAMINE HCL 100 MG TABLET (FP) PO SCH (22:07)
[2022-06-10] MEDS: amLODIPine BESYLATE 5 MG TABLET (FP) PO SCH (09:05)
[2022-06-10] MEDS: NICOTINE 7 MG/24 HOURS TOPICAL PATCH TD SCH (09:05)
[2022-06-10] MEDS: PRENATAL VITAMINS W/ FOLIC ACID TABLET (FP) PO SCH (09:05)
[2022-06-10] MEDS: predniSONE 10 MG TABLET (UD) PO SCH (09:05)
[2022-06-10] MEDS: LIDOCAINE 5% TOPICAL PATCH TP SCH (09:05)
[2022-06-10] MEDS: LORATADINE 10 MG TABLET PO SCH (09:05)
[2022-06-10] MEDS: SILVER SULFADIAZINE 1% TOP CREAM 50 GM JAR TP SCH (09:06)
[2022-06-10 09:07] VITALS: BP 115/66; PULSE 90; RESP 17
== END 2022-06-10 09:05 | disposition home or self-care (01) | DRG 772 ==
LOC: YASAS 13:16 → Y5N 13:18
PROVIDERS: ADMIT Allergy & Immunology; ATTEND Psychiatry & Neurology Pain Medicine
PROC: HZ42ZZZ Group Counseling for Substance Abuse Treatment, Cognitive-Behavioral (ICD-10-PCS; principal; 2022-05-18)
DX: F10.20 Alcohol dependence, uncomplicated (principal); F14.20 Cocaine dependence, uncomplicated; F19.282 Other psychoactive substance dependence with psychoactive substance-induced sleep disorder; F43.10 Post-traumatic stress disorder, unspecified; E78.5 Hyperlipidemia, unspecified; I10 Essential (primary) hypertension; M26.629 Arthralgia of temporomandibular joint, unspecified side; M54.50 Low back pain, unspecified; G89.29 Other chronic pain; L43.9 Lichen planus, unspecified; L30.9 Dermatitis, unspecified; T22.012A Burn of unspecified degree of left forearm, initial encounter; X10.0XXA Contact with hot drinks, initial encounter; Y93.89 Activity, other specified; Y92.239 Unspecified place in hospital as the place of occurrence of the external cause; Y99.9 Unspecified external cause status; Z99.89 Dependence on other enabling machines and devices

== ENCOUNTER 2023-01-11 17:57 | Inpatient (IN) | payer OTHER ==
[2023-01-11 18:56] VITALS: BMI 22.4
[2023-01-11] MEDS ORDERED: ACETAMINOPHEN 325 MG TABLET (FP) PO PRN (21:19)
[2023-01-11] MEDS ORDERED: MAG HYDROX/AL HYDROX/SIMETH 30 ML UNIT-DOSE CUP PO PRN (21:19)
[2023-01-11] MEDS ORDERED: LOPERAMIDE HCL 2 MG CAPSULE PO PRN (21:19)
[2023-01-11] MEDS ORDERED: guaiFENesin 600 MG TABLET.ER (FP) PO PRN (21:19)
[2023-01-11] MEDS ORDERED: BENZOCAINE/MENTHOL (CHLORASEPTIC ) LOZENGE MM PRN (21:19)
[2023-01-11] MEDS ORDERED: NALOXONE HCL 0.4 MG/ML VIAL IM PRN (21:19)
[2023-01-11] MEDS ORDERED: NICOTINE POLACRILEX 2 MG GUM BUC PRN (21:19)
[2023-01-11] MEDS ORDERED: BISMUTH SUBSALICYLATE 524 MG/30 ML PO PRN (21:19)
[2023-01-11] MEDS ORDERED: MAGNESIUM HYDROX 2400MG/30ML ORAL SUSPENSION 30 ML CUP PO PRN (21:19)
[2023-01-11] MEDS ORDERED: NALOXONE HCL (KLOXXADO) 8 MG SPRAY NS PRN (21:19)
[2023-01-11] MEDS ORDERED: P-EPHED 60MG/TRIPROLIDI 2.5MG TABLET PO PRN (21:19)
[2023-01-11] MEDS ORDERED: DICYCLOMINE HCL 10 MG CAPSULE PO PRN (21:19)
[2023-01-11] MEDS ORDERED: ONDANSETRON *ODT* 4 MG TABLET SL PRN (21:19)
[2023-01-11] MEDS ORDERED: BENZONATATE 200 MG CAPSULE PO PRN (21:19)
[2023-01-11] MEDS ORDERED: MELATONIN 5 MG TABLETS PO PRN (21:19)
[2023-01-11] MEDS ORDERED: POLYETHYLENE GLYCOL (HEALTHYLAX) 3350 17 GM PACKET PO PRN (21:19)
[2023-01-11] MEDS: THIAMINE HCL 100 MG TABLET (FP) PO SCH (23:27)
[2023-01-11] MEDS: ATORVASTATIN CA 10 MG TABLET (FP) PO SCH (23:41)
[2023-01-12] MEDS: amLODIPine BESYLATE 5 MG TABLET (FP) PO SCH (10:15)
[2023-01-12] MEDS: predniSONE 10 MG TABLET (UD) PO SCH (10:15)
[2023-01-12] MEDS: LORATADINE 10 MG TABLET PO SCH (10:15)
[2023-01-12] MEDS: PRENATAL VITAMINS W/ FOLIC ACID TABLET (FP) PO SCH (10:16)
[2023-01-12 11:31] LABS: HEMATOCRIT 35.6 % (35.4-49); HEMOGLOBIN 11.8 GM/dL (11.7-16.9); MCH 26.9 pg (25.7-33.7); MCHC 33.3 g/dl (32.0-35.9); MEAN CELL VOLUME 80.7 fl (80-96); MEAN PLT VOLUME 8.5 fl (7.5-11.1); PLATELET COUNT 221 10^3/uL (134-434); RBC 4.41 M/mm3 (4.00-5.60); RDW 15.1 % (11.9-15.9); WHITE BLOOD COUNT 5.6 K/mm3 (4.0-10.0)
[2023-01-12 11:33] LABS: POTASSIUM 4.4 mmol/L (3.5-5.1)
[2023-01-12 11:36] LABS: ALBUMIN 3.2 g/dl (3.4-5.0); BLOOD UREA NITROGEN 14.3 mg/dL (7-18); CALCIUM 8.4 mg/dL (8.5-10.1)
[2023-01-12 11:40] LABS: CREATININE 1.1 mg/dL (0.55-1.3)
[2023-01-12 11:42] LABS: BILIRUBIN,TOTAL 0.3 mg/dL (0.2-1); TOT PROT 6.2 g/dl (6.4-8.2)
[2023-01-12] MEDS: THIAMINE HCL 100 MG TABLET (FP) PO SCH (22:38)
[2023-01-12] MEDS: ATORVASTATIN CA 10 MG TABLET (FP) PO SCH (22:38)
[2023-01-12] MEDS: SUVOREXANT 5 MG TABLET PO PRN (22:39)
[2023-01-13] MEDS: PRENATAL VITAMINS W/ FOLIC ACID TABLET (FP) PO SCH (10:25)
[2023-01-13] MEDS: predniSONE 10 MG TABLET (UD) PO SCH (10:25)
[2023-01-13] MEDS: amLODIPine BESYLATE 5 MG TABLET (FP) PO SCH (10:25)
[2023-01-13] MEDS: LORATADINE 10 MG TABLET PO SCH (10:25)
[2023-01-13] MEDS: ATORVASTATIN CA 10 MG TABLET (FP) PO SCH (22:23)
[2023-01-13] MEDS: THIAMINE HCL 100 MG TABLET (FP) PO SCH (22:23)
[2023-01-13] MEDS: SUVOREXANT 5 MG TABLET PO PRN (22:24)
[2023-01-14] MEDS: predniSONE 10 MG TABLET (UD) PO SCH (10:10)
[2023-01-14] MEDS: amLODIPine BESYLATE 5 MG TABLET (FP) PO SCH (10:10)
[2023-01-14] MEDS: LORATADINE 10 MG TABLET PO SCH (10:10)
[2023-01-14] MEDS: PRENATAL VITAMINS W/ FOLIC ACID TABLET (FP) PO SCH (10:10)
[2023-01-14] MEDS ORDERED: PNEUMOC 20-VAL CONJ-DIP CRM/PF 0.5 ML SYRINGE IM ONE (12:00)
[2023-01-14 21:24] VITALS: PULSE 90
[2023-01-14] MEDS: THIAMINE HCL 100 MG TABLET (FP) PO SCH (22:22)
[2023-01-14] MEDS: ATORVASTATIN CA 10 MG TABLET (FP) PO SCH (22:22)
[2023-01-15 09:27] VITALS: BP 140/84; RESP 18; TEMP 97.6
[2023-01-15] MEDS: LORATADINE 10 MG TABLET PO SCH (10:43)
[2023-01-15] MEDS: predniSONE 10 MG TABLET (UD) PO SCH (10:44)
[2023-01-15] MEDS: amLODIPine BESYLATE 5 MG TABLET (FP) PO SCH (10:44)
[2023-01-15] MEDS: PRENATAL VITAMINS W/ FOLIC ACID TABLET (FP) PO SCH (10:44)
== END 2023-01-15 10:00 | disposition home or self-care (01) | DRG 773 ==
LOC: YASAS 17:57 → Y6N 23:03
PROVIDERS: ADMIT Allergy & Immunology; ATTEND Surgery
PROC: HZ2ZZZZ Detoxification Services for Substance Abuse Treatment (ICD-10-PCS; principal; 2023-01-11)
DX: F11.23 Opioid dependence with withdrawal (principal); F10.20 Alcohol dependence, uncomplicated; F14.20 Cocaine dependence, uncomplicated; F19.282 Other psychoactive substance dependence with psychoactive substance-induced sleep disorder; F19.280 Other psychoactive substance dependence with psychoactive substance-induced anxiety disorder; F43.10 Post-traumatic stress disorder, unspecified; E78.5 Hyperlipidemia, unspecified; I10 Essential (primary) hypertension; M54.41 Lumbago with sciatica, right side; G89.29 Other chronic pain; R63.4 Abnormal weight loss; Z68.22 Body mass index [BMI] 22.0-22.9, adult
CPT/HCPCS: 36415; 80053; 85027; 86780; 87811; 90677; C9803-CS; U0003; U0005

== ENCOUNTER 2023-03-17 09:06 | Inpatient (IN) | payer OTHER ==
[2023-03-17 09:22] VITALS: BMI 28.4
[2023-03-17] MEDS ORDERED: BENZONATATE 200 MG CAPSULE PO PRN (10:57)
[2023-03-17] MEDS ORDERED: NALOXONE HCL (KLOXXADO) 8 MG SPRAY NS PRN (10:57)
[2023-03-17] MEDS ORDERED: MAGNESIUM HYDROX 2400MG/30ML ORAL SUSPENSION 30 ML CUP PO PRN (10:57)
[2023-03-17] MEDS ORDERED: LOPERAMIDE HCL 2 MG CAPSULE PO PRN (10:57)
[2023-03-17] MEDS ORDERED: AMMONIUM LACTATE 12% LOTION 225 GM BOTTLE TP PRN (10:57)
[2023-03-17] MEDS ORDERED: BENZOCAINE/MENTHOL (CHLORASEPTIC ) LOZENGE MM PRN (10:57)
[2023-03-17] MEDS ORDERED: MAG HYDROX/AL HYDROX/SIMETH 30 ML UNIT-DOSE CUP PO PRN (10:57)
[2023-03-17] MEDS ORDERED: NALOXONE HCL 0.4 MG/ML VIAL IM PRN (10:57)
[2023-03-17] MEDS ORDERED: guaiFENesin 600 MG TABLET.ER (FP) PO PRN (10:57)
[2023-03-17] MEDS ORDERED: POLYETHYLENE GLYCOL (HEALTHYLAX) 3350 17 GM PACKET PO PRN (10:57)
[2023-03-17] MEDS ORDERED: P-EPHED 60MG/TRIPROLIDI 2.5MG TABLET PO PRN (10:57)
[2023-03-17] MEDS ORDERED: LORATADINE 10 MG TABLET PO SCH (11:00)
[2023-03-17] MEDS ORDERED: LORATADINE 10 MG TABLET PO PRN (11:14)
[2023-03-17] MEDS: predniSONE 10 MG TABLET (UD) PO SCH (12:18)
[2023-03-17] MEDS: amLODIPine BESYLATE 5 MG TABLET (FP) PO SCH (12:18)
[2023-03-17] MEDS ORDERED: amLODIPine BESYLATE 5 MG TABLET (FP) ONE (12:22)
[2023-03-17] MEDS: LIDOCAINE 5% TOPICAL PATCH TP SCH (14:21)
[2023-03-17 15:55] LABS: HEMATOCRIT 38.8 % (35.4-49); HEMOGLOBIN 12.4 GM/dL (11.7-16.9); MCH 26.6 pg (25.7-33.7); MCHC 31.9 g/dl (32.0-35.9); MEAN CELL VOLUME 83.4 fl (80-96); MEAN PLT VOLUME 8.6 fl (7.5-11.1); PLATELET COUNT 255 10^3/uL (134-434); RBC 4.65 M/mm3 (4.00-5.60); RDW 15.4 % (11.9-15.9); WHITE BLOOD COUNT 7.1 K/mm3 (4.0-10.0)
[2023-03-17 15:59] LABS: ALBUMIN 3.8 g/dl (3.4-5.0); BLOOD UREA NITROGEN 23.2 mg/dL (7-18); CALCIUM 9.2 mg/dL (8.5-10.1)
[2023-03-17 16:03] LABS: CREATININE 1.2 mg/dL (0.55-1.3)
[2023-03-17 16:04] LABS: TOT PROT 7.4 g/dl (6.4-8.2)
[2023-03-17 16:34] LABS: BILIRUBIN,TOTAL 0.4 mg/dL (0.2-1)
[2023-03-17] MEDS: ATORVASTATIN CA 10 MG TABLET (FP) PO SCH (21:02)
[2023-03-17] MEDS: THIAMINE HCL 100 MG TABLET (FP) PO SCH (21:02)
[2023-03-17] MEDS: MELATONIN 5 MG TABLETS PO SCH (21:02)
[2023-03-17] MEDS: LIDOCAINE PATCH REMOVAL MC SCH (21:02)
[2023-03-18] MEDS: LIDOCAINE 5% TOPICAL PATCH TP SCH (09:49)
[2023-03-18] MEDS: PRENATAL VITAMINS W/ FOLIC ACID TABLET (FP) PO SCH (09:49)
[2023-03-18] MEDS: amLODIPine BESYLATE 5 MG TABLET (FP) PO SCH (09:49)
[2023-03-18 10:30] LABS: URINE APPEARANCE CLEAR; URINE BILIRUBIN NEGATIVE (NEGATIVE); URINE COLOR YELLOW; URINE GLUCOSE (UA) NEGATIVE (NEGATIVE); URINE KETONE NEGATIVE (NEGATIVE); URINE LEUK ESTERASE NEGATIVE (NEGATIVE); URINE NITRITE NEGATIVE (NEGATIVE); URINE PROTEIN NEGATIVE (NEGATIVE)
[2023-03-18] MEDS: CHOLECALCIFEROL (VIT D3) 1,000 UNIT (25 MCG) TABLET PO SCH (10:44)
[2023-03-18] MEDS: predniSONE 10 MG TABLET (UD) PO SCH (10:44)
[2023-03-18] MEDS ORDERED: PNEUMOC 20-VAL CONJ-DIP CRM/PF 0.5 ML SYRINGE IM ONE (12:00)
[2023-03-18] MEDS: COLLOIDAL OATMEAL 1 BAR EACH TP PRN (12:22)
[2023-03-18] MEDS: LIDOCAINE PATCH REMOVAL MC SCH (21:15)
[2023-03-18] MEDS: MELATONIN 5 MG TABLETS PO SCH (21:15)
[2023-03-18] MEDS: THIAMINE HCL 100 MG TABLET (FP) PO SCH (21:15)
[2023-03-18] MEDS: ATORVASTATIN CA 10 MG TABLET (FP) PO SCH (21:15)
[2023-03-19] MEDS: LIDOCAINE 5% TOPICAL PATCH TP SCH (10:06)
[2023-03-19] MEDS: predniSONE 10 MG TABLET (UD) PO SCH (10:07)
[2023-03-19] MEDS: PRENATAL VITAMINS W/ FOLIC ACID TABLET (FP) PO SCH (10:07)
[2023-03-19] MEDS: amLODIPine BESYLATE 5 MG TABLET (FP) PO SCH (10:07)
[2023-03-19] MEDS: CHOLECALCIFEROL (VIT D3) 1,000 UNIT (25 MCG) TABLET PO SCH (10:07)
[2023-03-19] MEDS: LIDOCAINE PATCH REMOVAL MC SCH (21:29)
[2023-03-19] MEDS: MELATONIN 5 MG TABLETS PO SCH (21:30)
[2023-03-19] MEDS: ATORVASTATIN CA 10 MG TABLET (FP) PO SCH (21:30)
[2023-03-19] MEDS: THIAMINE HCL 100 MG TABLET (FP) PO SCH (21:30)
[2023-03-20] MEDS: predniSONE 10 MG TABLET (UD) PO SCH (09:43)
[2023-03-20] MEDS: amLODIPine BESYLATE 5 MG TABLET (FP) PO SCH (09:43)
[2023-03-20] MEDS: PRENATAL VITAMINS W/ FOLIC ACID TABLET (FP) PO SCH (09:43)
[2023-03-20] MEDS: CHOLECALCIFEROL (VIT D3) 1,000 UNIT (25 MCG) TABLET PO SCH (09:43)
[2023-03-20] MEDS: LIDOCAINE 5% TOPICAL PATCH TP SCH (09:44)
[2023-03-20] MEDS: ATORVASTATIN CA 10 MG TABLET (FP) PO SCH (21:07)
[2023-03-20] MEDS: MELATONIN 5 MG TABLETS PO SCH (21:08)
[2023-03-20] MEDS: THIAMINE HCL 100 MG TABLET (FP) PO SCH (21:08)
[2023-03-20] MEDS: LIDOCAINE PATCH REMOVAL MC SCH (21:09)
[2023-03-21] MEDS: PRENATAL VITAMINS W/ FOLIC ACID TABLET (FP) PO SCH (09:41)
[2023-03-21] MEDS: LIDOCAINE 5% TOPICAL PATCH TP SCH (09:42)
[2023-03-21] MEDS: amLODIPine BESYLATE 5 MG TABLET (FP) PO SCH (09:42)
[2023-03-21] MEDS: CHOLECALCIFEROL (VIT D3) 1,000 UNIT (25 MCG) TABLET PO SCH (09:44)
[2023-03-21] MEDS: predniSONE 10 MG TABLET (UD) PO SCH (09:44)
[2023-03-21] MEDS: LIDOCAINE PATCH REMOVAL MC SCH (21:07)
[2023-03-21] MEDS: THIAMINE HCL 100 MG TABLET (FP) PO SCH (21:07)
[2023-03-21] MEDS: MELATONIN 5 MG TABLETS PO SCH (21:07)
[2023-03-21] MEDS: ATORVASTATIN CA 10 MG TABLET (FP) PO SCH (21:07)
[2023-03-22] MEDS: PRENATAL VITAMINS W/ FOLIC ACID TABLET (FP) PO SCH (10:28)
[2023-03-22] MEDS: CHOLECALCIFEROL (VIT D3) 1,000 UNIT (25 MCG) TABLET PO SCH (10:29)
[2023-03-22] MEDS: amLODIPine BESYLATE 5 MG TABLET (FP) PO SCH (10:29)
[2023-03-22] MEDS: predniSONE 10 MG TABLET (UD) PO SCH (10:29)
[2023-03-22] MEDS: LIDOCAINE 5% TOPICAL PATCH TP SCH (10:30)
[2023-03-22] MEDS: THIAMINE HCL 100 MG TABLET (FP) PO SCH (21:07)
[2023-03-22] MEDS: ATORVASTATIN CA 10 MG TABLET (FP) PO SCH (21:07)
[2023-03-22] MEDS: MELATONIN 5 MG TABLETS PO SCH (21:07)
[2023-03-22] MEDS: LIDOCAINE PATCH REMOVAL MC SCH (21:08)
[2023-03-23] MEDS: PRENATAL VITAMINS W/ FOLIC ACID TABLET (FP) PO SCH (09:34)
[2023-03-23] MEDS: LIDOCAINE 5% TOPICAL PATCH TP SCH (09:34)
[2023-03-23] MEDS: CHOLECALCIFEROL (VIT D3) 1,000 UNIT (25 MCG) TABLET PO SCH (09:34)
[2023-03-23] MEDS: amLODIPine BESYLATE 5 MG TABLET (FP) PO SCH (09:34)
[2023-03-23] MEDS: predniSONE 10 MG TABLET (UD) PO SCH (09:34)
[2023-03-23] MEDS: ATORVASTATIN CA 10 MG TABLET (FP) PO SCH (21:05)
[2023-03-23] MEDS: THIAMINE HCL 100 MG TABLET (FP) PO SCH (21:05)
[2023-03-23] MEDS: MELATONIN 5 MG TABLETS PO SCH (21:05)
[2023-03-23] MEDS: LIDOCAINE PATCH REMOVAL MC SCH (21:06)
[2023-03-24] MEDS: PRENATAL VITAMINS W/ FOLIC ACID TABLET (FP) PO SCH (09:34)
[2023-03-24] MEDS: LIDOCAINE 5% TOPICAL PATCH TP SCH (09:34)
[2023-03-24] MEDS: amLODIPine BESYLATE 5 MG TABLET (FP) PO SCH (09:34)
[2023-03-24] MEDS: CHOLECALCIFEROL (VIT D3) 1,000 UNIT (25 MCG) TABLET PO SCH (09:35)
[2023-03-24] MEDS: predniSONE 10 MG TABLET (UD) PO SCH (09:35)
[2023-03-24] MEDS: ATORVASTATIN CA 10 MG TABLET (FP) PO SCH (21:07)
[2023-03-24] MEDS: THIAMINE HCL 100 MG TABLET (FP) PO SCH (21:07)
[2023-03-24] MEDS: MELATONIN 5 MG TABLETS PO SCH (21:07)
[2023-03-24] MEDS: LIDOCAINE PATCH REMOVAL MC SCH (21:08)
[2023-03-25] MEDS: CHOLECALCIFEROL (VIT D3) 1,000 UNIT (25 MCG) TABLET PO SCH (09:43)
[2023-03-25] MEDS: PRENATAL VITAMINS W/ FOLIC ACID TABLET (FP) PO SCH (09:43)
[2023-03-25] MEDS: predniSONE 10 MG TABLET (UD) PO SCH (09:44)
[2023-03-25] MEDS: amLODIPine BESYLATE 5 MG TABLET (FP) PO SCH (09:44)
[2023-03-25] MEDS: LIDOCAINE 5% TOPICAL PATCH TP SCH (09:44)
[2023-03-25] MEDS: LIDOCAINE PATCH REMOVAL MC SCH (21:03)
[2023-03-25] MEDS: THIAMINE HCL 100 MG TABLET (FP) PO SCH (21:03)
[2023-03-25] MEDS: ATORVASTATIN CA 10 MG TABLET (FP) PO SCH (21:03)
[2023-03-25] MEDS: MELATONIN 5 MG TABLETS PO SCH (21:03)
[2023-03-26] MEDS: LIDOCAINE 5% TOPICAL PATCH TP SCH (09:37)
[2023-03-26] MEDS: amLODIPine BESYLATE 5 MG TABLET (FP) PO SCH (09:37)
[2023-03-26] MEDS: PRENATAL VITAMINS W/ FOLIC ACID TABLET (FP) PO SCH (09:37)
[2023-03-26] MEDS: CHOLECALCIFEROL (VIT D3) 1,000 UNIT (25 MCG) TABLET PO SCH (09:37)
[2023-03-26] MEDS: predniSONE 10 MG TABLET (UD) PO SCH (09:37)
[2023-03-26] MEDS: ACETAMINOPHEN 325 MG TABLET (FP) PO PRN (13:54)
[2023-03-26] MEDS: LIDOCAINE PATCH REMOVAL MC SCH (21:03)
[2023-03-26] MEDS: ATORVASTATIN CA 10 MG TABLET (FP) PO SCH (21:04)
[2023-03-26] MEDS: MELATONIN 5 MG TABLETS PO SCH (21:04)
[2023-03-26] MEDS: THIAMINE HCL 100 MG TABLET (FP) PO SCH (21:04)
[2023-03-27] MEDS: PRENATAL VITAMINS W/ FOLIC ACID TABLET (FP) PO SCH (09:36)
[2023-03-27] MEDS: LIDOCAINE 5% TOPICAL PATCH TP SCH (09:36)
[2023-03-27] MEDS: CHOLECALCIFEROL (VIT D3) 1,000 UNIT (25 MCG) TABLET PO SCH (09:37)
[2023-03-27] MEDS: amLODIPine BESYLATE 5 MG TABLET (FP) PO SCH (09:37)
[2023-03-27] MEDS: predniSONE 10 MG TABLET (UD) PO SCH (09:37)
[2023-03-27] MEDS: MELATONIN 5 MG TABLETS PO SCH (21:11)
[2023-03-27] MEDS: LIDOCAINE PATCH REMOVAL MC SCH (21:11)
[2023-03-27] MEDS: ATORVASTATIN CA 10 MG TABLET (FP) PO SCH (21:11)
[2023-03-27] MEDS: THIAMINE HCL 100 MG TABLET (FP) PO SCH (21:11)
[2023-03-27] MEDS: COLLOIDAL OATMEAL 1 BAR EACH TP PRN (21:25)
[2023-03-28] MEDS: predniSONE 10 MG TABLET (UD) PO SCH (09:42)
[2023-03-28] MEDS: LIDOCAINE 5% TOPICAL PATCH TP SCH (09:42)
[2023-03-28] MEDS: CHOLECALCIFEROL (VIT D3) 1,000 UNIT (25 MCG) TABLET PO SCH (09:43)
[2023-03-28] MEDS: PRENATAL VITAMINS W/ FOLIC ACID TABLET (FP) PO SCH (09:43)
[2023-03-28] MEDS: amLODIPine BESYLATE 5 MG TABLET (FP) PO SCH (09:43)
[2023-03-28] MEDS: ATORVASTATIN CA 10 MG TABLET (FP) PO SCH (21:02)
[2023-03-28] MEDS: MELATONIN 5 MG TABLETS PO SCH (21:02)
[2023-03-28] MEDS: THIAMINE HCL 100 MG TABLET (FP) PO SCH (21:02)
[2023-03-28] MEDS: LIDOCAINE PATCH REMOVAL MC SCH (21:02)
[2023-03-28] MEDS: hydrOXYzine PAMOATE 25 MG CAPSULE (FP) PO PRN (21:03)
[2023-03-29] MEDS: PRENATAL VITAMINS W/ FOLIC ACID TABLET (FP) PO SCH (09:49)
[2023-03-29] MEDS: LIDOCAINE 5% TOPICAL PATCH TP SCH (09:49)
[2023-03-29] MEDS: predniSONE 10 MG TABLET (UD) PO SCH (09:51)
[2023-03-29] MEDS: amLODIPine BESYLATE 5 MG TABLET (FP) PO SCH (09:51)
[2023-03-29] MEDS: CHOLECALCIFEROL (VIT D3) 1,000 UNIT (25 MCG) TABLET PO SCH (09:51)
[2023-03-29] MEDS: hydrOXYzine PAMOATE 25 MG CAPSULE (FP) PO PRN (21:02)
[2023-03-29] MEDS: MELATONIN 5 MG TABLETS PO SCH (21:02)
[2023-03-29] MEDS: THIAMINE HCL 100 MG TABLET (FP) PO SCH (21:02)
[2023-03-29] MEDS: ATORVASTATIN CA 10 MG TABLET (FP) PO SCH (21:02)
[2023-03-29] MEDS: LIDOCAINE PATCH REMOVAL MC SCH (21:03)
[2023-03-30] MEDS: LIDOCAINE 5% TOPICAL PATCH TP SCH (09:40)
[2023-03-30] MEDS: predniSONE 10 MG TABLET (UD) PO SCH (09:40)
[2023-03-30] MEDS: PRENATAL VITAMINS W/ FOLIC ACID TABLET (FP) PO SCH (09:40)
[2023-03-30] MEDS: amLODIPine BESYLATE 5 MG TABLET (FP) PO SCH (09:40)
[2023-03-30] MEDS: CHOLECALCIFEROL (VIT D3) 1,000 UNIT (25 MCG) TABLET PO SCH (09:40)
[2023-03-30] MEDS: ATORVASTATIN CA 10 MG TABLET (FP) PO SCH (21:05)
[2023-03-30] MEDS: LIDOCAINE PATCH REMOVAL MC SCH (21:05)
[2023-03-30] MEDS: MELATONIN 5 MG TABLETS PO SCH (21:05)
[2023-03-30] MEDS: hydrOXYzine PAMOATE 25 MG CAPSULE (FP) PO PRN (21:05)
[2023-03-30] MEDS: THIAMINE HCL 100 MG TABLET (FP) PO SCH (21:05)
[2023-03-31] MEDS: PRENATAL VITAMINS W/ FOLIC ACID TABLET (FP) PO SCH (09:34)
[2023-03-31] MEDS: predniSONE 10 MG TABLET (UD) PO SCH (09:35)
[2023-03-31] MEDS: CHOLECALCIFEROL (VIT D3) 1,000 UNIT (25 MCG) TABLET PO SCH (09:35)
[2023-03-31] MEDS: amLODIPine BESYLATE 5 MG TABLET (FP) PO SCH (09:36)
[2023-03-31] MEDS: LIDOCAINE 5% TOPICAL PATCH TP SCH (09:36)
[2023-03-31] MEDS: ATORVASTATIN CA 10 MG TABLET (FP) PO SCH (21:03)
[2023-03-31] MEDS: MELATONIN 5 MG TABLETS PO SCH (21:03)
[2023-03-31] MEDS: THIAMINE HCL 100 MG TABLET (FP) PO SCH (21:03)
[2023-03-31] MEDS: hydrOXYzine PAMOATE 25 MG CAPSULE (FP) PO PRN (21:04)
[2023-03-31] MEDS: LIDOCAINE PATCH REMOVAL MC SCH (21:05)
[2023-04-01] MEDS: LIDOCAINE 5% TOPICAL PATCH TP SCH (09:50)
[2023-04-01] MEDS: amLODIPine BESYLATE 5 MG TABLET (FP) PO SCH (09:50)
[2023-04-01] MEDS: PRENATAL VITAMINS W/ FOLIC ACID TABLET (FP) PO SCH (09:51)
[2023-04-01] MEDS: predniSONE 10 MG TABLET (UD) PO SCH (09:51)
[2023-04-01] MEDS: CHOLECALCIFEROL (VIT D3) 1,000 UNIT (25 MCG) TABLET PO SCH (09:51)
[2023-04-01] MEDS: MELATONIN 5 MG TABLETS PO SCH (21:45)
[2023-04-01] MEDS: LIDOCAINE PATCH REMOVAL MC SCH (21:45)
[2023-04-01] MEDS: hydrOXYzine PAMOATE 25 MG CAPSULE (FP) PO PRN (21:46)
[2023-04-01] MEDS: THIAMINE HCL 100 MG TABLET (FP) PO SCH (21:46)
[2023-04-01] MEDS: ATORVASTATIN CA 10 MG TABLET (FP) PO SCH (21:46)
[2023-04-02] MEDS: COLLOIDAL OATMEAL 1 BAR EACH TP PRN (05:32)
[2023-04-02 06:58] VITALS: RESP 18
[2023-04-02] MEDS: PRENATAL VITAMINS W/ FOLIC ACID TABLET (FP) PO SCH (09:28)
[2023-04-02] MEDS: amLODIPine BESYLATE 5 MG TABLET (FP) PO SCH (09:29)
[2023-04-02] MEDS: LIDOCAINE 5% TOPICAL PATCH TP SCH (09:29)
[2023-04-02] MEDS: predniSONE 10 MG TABLET (UD) PO SCH (09:29)
[2023-04-02] MEDS: CHOLECALCIFEROL (VIT D3) 1,000 UNIT (25 MCG) TABLET PO SCH (09:29)
[2023-04-02] MEDS: MELATONIN 5 MG TABLETS PO SCH (21:07)
[2023-04-02] MEDS: THIAMINE HCL 100 MG TABLET (FP) PO SCH (21:07)
[2023-04-02] MEDS: hydrOXYzine PAMOATE 25 MG CAPSULE (FP) PO PRN (21:07)
[2023-04-02] MEDS: ATORVASTATIN CA 10 MG TABLET (FP) PO SCH (21:07)
[2023-04-02] MEDS: LIDOCAINE PATCH REMOVAL MC SCH (21:19)
[2023-04-03] MEDS: amLODIPine BESYLATE 5 MG TABLET (FP) PO SCH (09:34)
[2023-04-03] MEDS: PRENATAL VITAMINS W/ FOLIC ACID TABLET (FP) PO SCH (09:34)
[2023-04-03] MEDS: LIDOCAINE 5% TOPICAL PATCH TP SCH (09:34)
[2023-04-03] MEDS: predniSONE 10 MG TABLET (UD) PO SCH (09:34)
[2023-04-03] MEDS: CHOLECALCIFEROL (VIT D3) 1,000 UNIT (25 MCG) TABLET PO SCH (09:34)
[2023-04-03] MEDS: ACETAMINOPHEN 325 MG TABLET (FP) PO PRN (15:58)
[2023-04-03] MEDS: hydrOXYzine PAMOATE 25 MG CAPSULE (FP) PO PRN (21:06)
[2023-04-03] MEDS: MELATONIN 5 MG TABLETS PO SCH (21:06)
[2023-04-03] MEDS: ATORVASTATIN CA 10 MG TABLET (FP) PO SCH (21:06)
[2023-04-03] MEDS: THIAMINE HCL 100 MG TABLET (FP) PO SCH (21:06)
[2023-04-03] MEDS: LIDOCAINE PATCH REMOVAL MC SCH (21:07)
[2023-04-04] MEDS: CHOLECALCIFEROL (VIT D3) 1,000 UNIT (25 MCG) TABLET PO SCH (09:26)
[2023-04-04] MEDS: predniSONE 10 MG TABLET (UD) PO SCH (09:26)
[2023-04-04] MEDS: LIDOCAINE 5% TOPICAL PATCH TP SCH (09:27)
[2023-04-04] MEDS: PRENATAL VITAMINS W/ FOLIC ACID TABLET (FP) PO SCH (09:27)
[2023-04-04] MEDS: amLODIPine BESYLATE 5 MG TABLET (FP) PO SCH (09:27)
[2023-04-04] MEDS: ACETAMINOPHEN 325 MG TABLET (FP) PO PRN (13:27)
[2023-04-04] MEDS: ATORVASTATIN CA 10 MG TABLET (FP) PO SCH (21:12)
[2023-04-04] MEDS: MELATONIN 5 MG TABLETS PO SCH (21:12)
[2023-04-04] MEDS: THIAMINE HCL 100 MG TABLET (FP) PO SCH (21:12)
[2023-04-04] MEDS: hydrOXYzine PAMOATE 25 MG CAPSULE (FP) PO PRN (21:12)
[2023-04-04] MEDS: LIDOCAINE PATCH REMOVAL MC SCH (21:13)
[2023-04-05] MEDS: PRENATAL VITAMINS W/ FOLIC ACID TABLET (FP) PO SCH (09:26)
[2023-04-05] MEDS: predniSONE 10 MG TABLET (UD) PO SCH (09:26)
[2023-04-05] MEDS: LIDOCAINE 5% TOPICAL PATCH TP SCH (09:26)
[2023-04-05] MEDS: CHOLECALCIFEROL (VIT D3) 1,000 UNIT (25 MCG) TABLET PO SCH (09:26)
[2023-04-05] MEDS: amLODIPine BESYLATE 5 MG TABLET (FP) PO SCH (09:26)
[2023-04-05] MEDS: ACETAMINOPHEN 325 MG TABLET (FP) PO PRN (11:42)
[2023-04-05] MEDS: MELATONIN 5 MG TABLETS PO SCH (21:14)
[2023-04-05] MEDS: hydrOXYzine PAMOATE 25 MG CAPSULE (FP) PO PRN (21:14)
[2023-04-05] MEDS: THIAMINE HCL 100 MG TABLET (FP) PO SCH (21:14)
[2023-04-05] MEDS: ATORVASTATIN CA 10 MG TABLET (FP) PO SCH (21:14)
[2023-04-05] MEDS: LIDOCAINE PATCH REMOVAL MC SCH (21:26)
[2023-04-06] MEDS: amLODIPine BESYLATE 5 MG TABLET (FP) PO SCH (09:27)
[2023-04-06] MEDS: PRENATAL VITAMINS W/ FOLIC ACID TABLET (FP) PO SCH (09:27)
[2023-04-06] MEDS: LIDOCAINE 5% TOPICAL PATCH TP SCH (09:27)
[2023-04-06] MEDS: predniSONE 10 MG TABLET (UD) PO SCH (09:27)
[2023-04-06] MEDS: CHOLECALCIFEROL (VIT D3) 1,000 UNIT (25 MCG) TABLET PO SCH (09:27)
[2023-04-06] MEDS: THIAMINE HCL 100 MG TABLET (FP) PO SCH (21:03)
[2023-04-06] MEDS: MELATONIN 5 MG TABLETS PO SCH (21:03)
[2023-04-06] MEDS: LIDOCAINE PATCH REMOVAL MC SCH (21:04)
[2023-04-06] MEDS: hydrOXYzine PAMOATE 25 MG CAPSULE (FP) PO PRN (21:04)
[2023-04-06] MEDS: ATORVASTATIN CA 10 MG TABLET (FP) PO SCH (21:05)
[2023-04-07] MEDS: LIDOCAINE 5% TOPICAL PATCH TP SCH (09:31)
[2023-04-07] MEDS: amLODIPine BESYLATE 5 MG TABLET (FP) PO SCH (09:31)
[2023-04-07] MEDS: CHOLECALCIFEROL (VIT D3) 1,000 UNIT (25 MCG) TABLET PO SCH (09:31)
[2023-04-07] MEDS: PRENATAL VITAMINS W/ FOLIC ACID TABLET (FP) PO SCH (09:31)
[2023-04-07] MEDS: predniSONE 10 MG TABLET (UD) PO SCH (09:32)
[2023-04-07] MEDS: hydrOXYzine PAMOATE 25 MG CAPSULE (FP) PO PRN ×2 (09:32→21:09)
[2023-04-07] MEDS: MELATONIN 5 MG TABLETS PO SCH (21:09)
[2023-04-07] MEDS: THIAMINE HCL 100 MG TABLET (FP) PO SCH (21:09)
[2023-04-07] MEDS: ATORVASTATIN CA 10 MG TABLET (FP) PO SCH (21:09)
[2023-04-07] MEDS: LIDOCAINE PATCH REMOVAL MC SCH (21:29)
[2023-04-08] MEDS: amLODIPine BESYLATE 5 MG TABLET (FP) PO SCH (09:15)
[2023-04-08] MEDS: LIDOCAINE 5% TOPICAL PATCH TP SCH (09:15)
[2023-04-08] MEDS: PRENATAL VITAMINS W/ FOLIC ACID TABLET (FP) PO SCH (09:15)
[2023-04-08] MEDS: CHOLECALCIFEROL (VIT D3) 1,000 UNIT (25 MCG) TABLET PO SCH (09:15)
[2023-04-08] MEDS: predniSONE 10 MG TABLET (UD) PO SCH (09:15)
[2023-04-08] MEDS: COLLOIDAL OATMEAL 1 BAR EACH TP PRN (11:45)
[2023-04-08] MEDS: THIAMINE HCL 100 MG TABLET (FP) PO SCH (21:04)
[2023-04-08] MEDS: ATORVASTATIN CA 10 MG TABLET (FP) PO SCH (21:04)
[2023-04-08] MEDS: MELATONIN 5 MG TABLETS PO SCH (21:04)
[2023-04-08] MEDS: hydrOXYzine PAMOATE 25 MG CAPSULE (FP) PO PRN (21:04)
[2023-04-08] MEDS: LIDOCAINE PATCH REMOVAL MC SCH (21:28)
[2023-04-09] MEDS: PRENATAL VITAMINS W/ FOLIC ACID TABLET (FP) PO SCH (09:21)
[2023-04-09] MEDS: LIDOCAINE 5% TOPICAL PATCH TP SCH (09:22)
[2023-04-09] MEDS: amLODIPine BESYLATE 5 MG TABLET (FP) PO SCH (09:22)
[2023-04-09] MEDS: predniSONE 10 MG TABLET (UD) PO SCH (09:22)
[2023-04-09] MEDS: CHOLECALCIFEROL (VIT D3) 1,000 UNIT (25 MCG) TABLET PO SCH (09:22)
[2023-04-09] MEDS: hydrOXYzine PAMOATE 25 MG CAPSULE (FP) PO PRN (21:03)
[2023-04-09] MEDS: ATORVASTATIN CA 10 MG TABLET (FP) PO SCH (21:03)
[2023-04-09] MEDS: MELATONIN 5 MG TABLETS PO SCH (21:03)
[2023-04-09] MEDS: LIDOCAINE PATCH REMOVAL MC SCH (21:04)
[2023-04-09] MEDS: THIAMINE HCL 100 MG TABLET (FP) PO SCH (21:25)
[2023-04-10] MEDS: LIDOCAINE 5% TOPICAL PATCH TP SCH (09:21)
[2023-04-10] MEDS: PRENATAL VITAMINS W/ FOLIC ACID TABLET (FP) PO SCH (09:22)
[2023-04-10] MEDS: predniSONE 10 MG TABLET (UD) PO SCH (09:22)
[2023-04-10] MEDS: amLODIPine BESYLATE 5 MG TABLET (FP) PO SCH (09:22)
[2023-04-10] MEDS: CHOLECALCIFEROL (VIT D3) 1,000 UNIT (25 MCG) TABLET PO SCH (09:22)
[2023-04-10] MEDS: hydrOXYzine PAMOATE 25 MG CAPSULE (FP) PO PRN (21:05)
[2023-04-10] MEDS: THIAMINE HCL 100 MG TABLET (FP) PO SCH (21:05)
[2023-04-10] MEDS: LIDOCAINE PATCH REMOVAL MC SCH (21:06)
[2023-04-10] MEDS: MELATONIN 5 MG TABLETS PO SCH (21:06)
[2023-04-10] MEDS: ATORVASTATIN CA 10 MG TABLET (FP) PO SCH (21:06)
[2023-04-11 07:00] VITALS: BP 132/69; PULSE 74; TEMP 97.6
[2023-04-11] MEDS: PRENATAL VITAMINS W/ FOLIC ACID TABLET (FP) PO SCH (09:02)
[2023-04-11] MEDS: predniSONE 10 MG TABLET (UD) PO SCH (09:02)
[2023-04-11] MEDS: amLODIPine BESYLATE 5 MG TABLET (FP) PO SCH (09:02)
[2023-04-11] MEDS: CHOLECALCIFEROL (VIT D3) 1,000 UNIT (25 MCG) TABLET PO SCH (09:03)
[2023-04-11] MEDS: LIDOCAINE 5% TOPICAL PATCH TP SCH (09:03)
== END 2023-04-11 09:15 | disposition home or self-care (01) | DRG 772 ==
LOC: YASAS 09:06 → Y5N 13:36
PROVIDERS: ADMIT Allergy & Immunology; ATTEND Psychiatry & Neurology Pain Medicine
PROC: HZ42ZZZ Group Counseling for Substance Abuse Treatment, Cognitive-Behavioral (ICD-10-PCS; principal; 2023-03-17)
DX: F11.20 Opioid dependence, uncomplicated (principal); F10.20 Alcohol dependence, uncomplicated; F14.20 Cocaine dependence, uncomplicated; F43.10 Post-traumatic stress disorder, unspecified; E78.5 Hyperlipidemia, unspecified; I10 Essential (primary) hypertension; J30.9 Allergic rhinitis, unspecified; M54.31 Sciatica, right side
CPT/HCPCS: 36415; 80053; 81003; 85027; 86780; 87635

== ENCOUNTER 2023-09-10 10:35 | Inpatient (IN) | payer OTHER ==
[2023-09-10 11:16] VITALS: BMI 25.1
[2023-09-10] MEDS ORDERED: POLYETHYLENE GLYCOL (HEALTHYLAX) 3350 17 GM PACKET PO PRN (12:19)
[2023-09-10] MEDS ORDERED: BENZOCAINE/MENTHOL (CHLORASEPTIC ) LOZENGE MM PRN (12:19)
[2023-09-10] MEDS ORDERED: MAGNESIUM HYDROX 2400MG/30ML ORAL SUSPENSION 30 ML CUP PO PRN (12:19)
[2023-09-10] MEDS ORDERED: ACETAMINOPHEN 325 MG TABLET (FP) PO PRN (12:19)
[2023-09-10] MEDS ORDERED: BISMUTH SUBSALICYLATE 524 MG/30 ML PO PRN (12:19)
[2023-09-10] MEDS ORDERED: MAG HYDROX/AL HYDROX/SIMETH 30 ML UNIT-DOSE CUP PO PRN (12:19)
[2023-09-10] MEDS ORDERED: BENZONATATE 200 MG CAPSULE PO PRN (12:19)
[2023-09-10] MEDS ORDERED: DICYCLOMINE HCL 10 MG CAPSULE PO PRN (12:19)
[2023-09-10] MEDS ORDERED: NALOXONE HCL 0.4 MG/ML VIAL IM PRN (12:19)
[2023-09-10] MEDS ORDERED: LOPERAMIDE HCL 2 MG CAPSULE PO PRN (12:19)
[2023-09-10] MEDS ORDERED: NALOXONE HCL (KLOXXADO) 8 MG SPRAY NS PRN (12:19)
[2023-09-10] MEDS ORDERED: guaiFENesin 600 MG TABLET.ER (FP) PO PRN (12:19)
[2023-09-10] MEDS ORDERED: cloNIDine HCL 0.1 MG TABLET PO PRN (12:19)
[2023-09-10] MEDS ORDERED: ONDANSETRON *ODT* 4 MG TABLET SL PRN (12:19)
[2023-09-10] MEDS ORDERED: IBUPROFEN 400 MG TABLET (FP) PO PRN (12:19)
[2023-09-10] MEDS: METHOCARBAMOL 500 MG TABLET PO PRN (13:32)
[2023-09-10] MEDS: methaDONE HCL 10 MG TABLET (FOR DETOX USE ONLY) PO ONE (13:33)
[2023-09-10] MEDS: MELATONIN 5 MG TABLETS PO SCH (22:27)
[2023-09-10] MEDS: THIAMINE HCL 100 MG TABLET (FP) PO SCH (22:27)
[2023-09-10] MEDS: ATORVASTATIN CA 10 MG TABLET (FP) PO SCH (22:27)
[2023-09-11] MEDS: TAMSULOSIN HCL 0.4 MG CAP PO SCH (08:38)
[2023-09-11] MEDS: PRENATAL VITAMINS W/ FOLIC ACID TABLET (FP) PO SCH (10:32)
[2023-09-11] MEDS: predniSONE 10 MG TABLET (UD) PO SCH (10:32)
[2023-09-11] MEDS: amLODIPine BESYLATE 5 MG TABLET (FP) PO SCH (10:34)
[2023-09-11] MEDS: FLU VACCINE (FLULAVAL) PF 60 MCG/0.5 ML SYRINGE 2023-2024 IM ONE (11:17)
[2023-09-11] MEDS: diazePAM 5 MG TABLET PO PRN (12:34)
[2023-09-11 13:17] LABS: HEMATOCRIT 33.8 % (35.4-49); HEMOGLOBIN 11.2 GM/dL (11.7-16.9); MCH 27.2 pg (25.7-33.7); MCHC 33.1 g/dl (32.0-35.9); MEAN CELL VOLUME 82.2 fl (80-96); MEAN PLT VOLUME 8.2 fl (7.5-11.1); PLATELET COUNT 264 10^3/uL (134-434); RBC 4.11 M/mm3 (4.00-5.60); RDW 14.3 % (11.9-15.9)
[2023-09-11 13:18] LABS: CHLORIDE 106 mmol/L (98-107); SODIUM 142 mmol/L (136-145)
[2023-09-11 13:20] LABS: CALCIUM 8.3 mg/dL (8.5-10.1)
[2023-09-11 13:21] LABS: ANION GAP 6 mmol/L (4-13); BLOOD UREA NITROGEN 10.6 mg/dL (7-18); CO2 30 mmol/L (21-32); GLUCOSE,RANDOM 101 mg/dL (74-106)
[2023-09-11 13:23] LABS: CREATININE 1.2 mg/dL (0.55-1.3)
[2023-09-11 13:24] LABS: SGOT/AST 20 U/L (15-37); SGPT/ALT 17 U/L (13-61)
[2023-09-11 13:25] LABS: BILIRUBIN,TOTAL 0.3 mg/dL (0.2-1); TOT PROT 6.1 g/dl (6.4-8.2)
[2023-09-11 13:27] LABS: ALK PHOS 91 U/L (45-117)
[2023-09-11] MEDS: COLLOIDAL OATMEAL 1 BAR EACH TP PRN (16:06)
[2023-09-11] MEDS: SUVOREXANT 10 MG TABLET PO PRN (22:25)
[2023-09-12] MEDS: methaDONE HCL 10 MG TABLET (FOR DETOX USE ONLY) PO ONE (10:39)
[2023-09-12] MEDS: IBUPROFEN 600 MG TABLET (FP) PO PRN (22:53)
[2023-09-14] MEDS: methaDONE HCL 10 MG TABLET (FOR DETOX USE ONLY) PO ONE (10:48)
[2023-09-15] MEDS: hydrOXYzine PAMOATE 25 MG CAPSULE (FP) PO PRN (06:26)
[2023-09-15 09:08] VITALS: BP 109/68; PULSE 75; RESP 18; TEMP 97.8
== END 2023-09-15 11:56 | disposition home or self-care (01) | DRG 773 ==
LOC: SUATTDRO 10:35 → YASAS 10:35 → Y6N 12:53
PROVIDERS: ADMIT Allergy & Immunology; ATTEND Surgery
PROC: HZ2ZZZZ Detoxification Services for Substance Abuse Treatment (ICD-10-PCS; principal; 2023-09-10)
DX: F11.23 Opioid dependence with withdrawal (principal); F14.20 Cocaine dependence, uncomplicated; F10.10 Alcohol abuse, uncomplicated; F43.10 Post-traumatic stress disorder, unspecified; E78.1 Pure hyperglyceridemia; I10 Essential (primary) hypertension; Z20.822 Contact with and (suspected) exposure to COVID-19
CPT/HCPCS: 36415; 80053; 80307; 85027; 86780; 87635; 87811; 90686; G0008

== ENCOUNTER 2024-03-15 18:04 | Inpatient (IN) | payer OTHER ==
[2024-03-15 20:02] VITALS: BMI 27.3
[2024-03-15] MEDS ORDERED: ACETAMINOPHEN 325 MG TABLET (FP) PO PRN (21:40)
[2024-03-15] MEDS ORDERED: LOPERAMIDE HCL 2 MG CAPSULE PO PRN (21:40)
[2024-03-15] MEDS ORDERED: BISMUTH SUBSALICYLATE 524 MG/30 ML PO PRN (21:40)
[2024-03-15] MEDS ORDERED: BENZONATATE 200 MG CAPSULE PO PRN (21:40)
[2024-03-15] MEDS ORDERED: DICYCLOMINE HCL 10 MG CAPSULE PO PRN (21:40)
[2024-03-15] MEDS ORDERED: guaiFENesin 600 MG TABLET.ER (FP) PO PRN (21:40)
[2024-03-15] MEDS ORDERED: MAGNESIUM HYDROX 2400MG/30ML ORAL SUSPENSION 30 ML CUP PO PRN (21:40)
[2024-03-15] MEDS ORDERED: POLYETHYLENE GLYCOL (HEALTHYLAX) 3350 17 GM PACKET PO PRN (21:40)
[2024-03-15] MEDS ORDERED: MAG HYDROX/AL HYDROX/SIMETH 30 ML UNIT-DOSE CUP PO PRN (21:40)
[2024-03-15] MEDS ORDERED: BENZOCAINE/MENTHOL (CHLORASEPTIC ) LOZENGE MM PRN (21:40)
[2024-03-15] MEDS ORDERED: NALOXONE HCL 0.4 MG/ML VIAL IM PRN (21:40)
[2024-03-15] MEDS ORDERED: IBUPROFEN 400 MG TABLET (FP) PO PRN (21:40)
[2024-03-15] MEDS ORDERED: NALOXONE (NARCAN) HCL 4 MG/0.1 ML SPRAY NS PRN (21:40)
[2024-03-15] MEDS ORDERED: MELATONIN 5 MG TABLETS ONE (22:05)
[2024-03-15] MEDS ORDERED: methaDONE HCL 10 MG TABLET (FOR DETOX USE ONLY) ONE (22:05)
[2024-03-15] MEDS: THIAMINE 100 MG TABLET PO SCH (22:09)
[2024-03-15] MEDS: methaDONE HCL 10 MG TABLET (FOR DETOX USE ONLY) PO ONE (22:09)
[2024-03-15] MEDS: MELATONIN 5 MG TABLETS PO SCH (22:09)
[2024-03-16] MEDS: hydrOXYzine PAMOATE 25 MG CAPSULE (FP) PO PRN (02:46)
[2024-03-16] MEDS: METHOCARBAMOL 500 MG TABLET PO PRN (02:46)
[2024-03-16] MEDS: PRENATAL VITAMINS W/ FOLIC ACID TABLET (FP) PO SCH (10:05)
[2024-03-16 11:14] LABS: CHLORIDE 106 mmol/L (98-107); SODIUM 140 mmol/L (136-145)
[2024-03-16 11:16] LABS: HEMATOCRIT 35.6 % (35.4-49); HEMOGLOBIN 11.9 GM/dL (11.7-16.9); MCH 27.5 pg (25.7-33.7); MCHC 33.5 g/dl (32.0-35.9); MEAN PLT VOLUME 7.8 fl (7.5-11.1); PLATELET COUNT 193 10^3/uL (134-434); RBC 4.34 M/mm3 (4.00-5.60); RDW 14.1 % (11.9-15.9)
[2024-03-16 11:18] LABS: CALCIUM 8.5 mg/dL (8.5-10.1); GLUCOSE,RANDOM 72 mg/dL (74-106)
[2024-03-16 11:19] LABS: ALBUMIN 3.3 g/dl (3.4-5.0); BLOOD UREA NITROGEN 24.8 mg/dL (7-18)
[2024-03-16 11:20] LABS: ANION GAP 3 mmol/L (4-13); CO2 31 mmol/L (21-32); CREATININE 1.1 mg/dL (0.55-1.3); SGOT/AST 17 U/L (15-37); SGPT/ALT 21 U/L (13-61)
[2024-03-16 11:22] LABS: BILIRUBIN,TOTAL 0.3 mg/dL (0.2-1)
[2024-03-16 11:25] LABS: ALK PHOS 96 U/L (45-117)
[2024-03-16] MEDS: PNEUMOC 20-VAL CONJ-DIP CRM/PF 0.5 ML SYRINGE IM ONE (12:53)
[2024-03-16] MEDS: ONDANSETRON *ODT* 4 MG TABLET SL PRN (17:34)
[2024-03-16] MEDS: cloNIDine HCL 0.1 MG TABLET PO PRN (17:35)
[2024-03-17] MEDS: TAMSULOSIN HCL 0.4 MG CAP PO SCH (08:41)
[2024-03-17] MEDS: predniSONE 10 MG TABLET (UD) PO SCH (10:06)
[2024-03-17] MEDS: methaDONE HCL 10 MG TABLET (FOR DETOX USE ONLY) PO ONE (10:07)
[2024-03-17] MEDS: ATORVASTATIN CA 10 MG TABLET (FP) PO SCH (21:45)
[2024-03-17] MEDS: TRIAMCINOLONE ACET 0.1% CREAM 15 GM TUBE TP SCH (21:46)
[2024-03-18] MEDS: IBUPROFEN 600 MG TABLET (FP) PO PRN (23:58)
[2024-03-19] MEDS: methaDONE HCL 10 MG TABLET (FOR DETOX USE ONLY) PO ONE (10:33)
[2024-03-19 16:42] VITALS: RESP 17
[2024-03-19 21:35] VITALS: BP 141/77; PULSE 86; TEMP 98.4
== END 2024-03-20 08:56 | disposition home or self-care (01) | DRG 773 ==
LOC: YASAS 18:04 → Y6N 22:02
PROVIDERS: ADMIT Allergy & Immunology; ATTEND Surgery
PROC: HZ2ZZZZ Detoxification Services for Substance Abuse Treatment (ICD-10-PCS; principal; 2024-03-15)
DX: F11.23 Opioid dependence with withdrawal (principal); F14.20 Cocaine dependence, uncomplicated; F19.24 Other psychoactive substance dependence with psychoactive substance-induced mood disorder; F41.9 Anxiety disorder, unspecified; F43.10 Post-traumatic stress disorder, unspecified; E78.1 Pure hyperglyceridemia; I10 Essential (primary) hypertension; M54.41 Lumbago with sciatica, right side; G89.29 Other chronic pain; N40.0 Benign prostatic hyperplasia without lower urinary tract symptoms; Z99.89 Dependence on other enabling machines and devices
CPT/HCPCS: 36415; 80053; 80305; 80307; 85027; 86780; 90677; 93005; 93010; G0009; Q0162

== ENCOUNTER 2024-04-14 09:49 | Inpatient (IN) | payer OTHER ==
[2024-04-14 10:04] VITALS: BMI 28.7
[2024-04-14] MEDS ORDERED: NICOTINE POLACRILEX 2 MG LOZENGE BC PRN (10:14)
[2024-04-14] MEDS ORDERED: IBUPROFEN 400 MG TABLET (FP) PO PRN (10:14)
[2024-04-14] MEDS ORDERED: NICOTINE POLACRILEX 2 MG GUM BUC PRN (10:14)
[2024-04-14] MEDS ORDERED: NALOXONE HCL 0.4 MG/ML VIAL IM PRN (10:14)
[2024-04-14] MEDS ORDERED: DICYCLOMINE HCL 10 MG CAPSULE PO PRN (10:14)
[2024-04-14] MEDS ORDERED: ONDANSETRON *ODT* 4 MG TABLET SL PRN (10:14)
[2024-04-14] MEDS ORDERED: BISMUTH SUBSALICYLATE 524 MG/30 ML PO PRN (10:14)
[2024-04-14] MEDS ORDERED: IBUPROFEN 600 MG TABLET (FP) PO PRN (10:14)
[2024-04-14] MEDS ORDERED: P-EPHED 60MG/TRIPROLIDI 2.5MG TABLET PO PRN (10:14)
[2024-04-14] MEDS ORDERED: BENZONATATE 200 MG CAPSULE PO PRN (10:14)
[2024-04-14] MEDS ORDERED: MAGNESIUM HYDROX 2400MG/30ML ORAL SUSPENSION 30 ML CUP PO PRN (10:14)
[2024-04-14] MEDS ORDERED: MAG HYDROX/AL HYDROX/SIMETH 30 ML UNIT-DOSE CUP PO PRN (10:14)
[2024-04-14] MEDS ORDERED: NALOXONE (NARCAN) HCL 4 MG/0.1 ML SPRAY NS PRN (10:14)
[2024-04-14] MEDS ORDERED: LOPERAMIDE HCL 2 MG CAPSULE PO PRN (10:14)
[2024-04-14] MEDS ORDERED: POLYETHYLENE GLYCOL (HEALTHYLAX) 3350 17 GM PACKET PO PRN (10:14)
[2024-04-14] MEDS ORDERED: guaiFENesin 600 MG TABLET.ER (FP) PO PRN (10:14)
[2024-04-14] MEDS ORDERED: BENZOCAINE/MENTHOL (CHLORASEPTIC ) LOZENGE MM PRN (10:14)
[2024-04-14] MEDS ORDERED: methaDONE HCL 10 MG TABLET ONE (11:01)
[2024-04-14] MEDS: methaDONE HCL 10 MG TABLET (FOR DETOX USE ONLY) PO ONE (11:03)
[2024-04-14] MEDS: ACETAMINOPHEN 325 MG TABLET (FP) PO PRN (14:09)
[2024-04-14] MEDS: MELATONIN 5 MG TABLETS PO SCH (22:07)
[2024-04-14] MEDS: cloNIDine HCL 0.1 MG TABLET PO PRN (22:08)
[2024-04-14] MEDS: ATORVASTATIN CA 10 MG TABLET (FP) PO SCH (22:08)
[2024-04-14] MEDS: THIAMINE 100 MG TABLET PO SCH (22:08)
[2024-04-14] MEDS: METHOCARBAMOL 500 MG TABLET PO PRN (22:09)
[2024-04-15] MEDS: methaDONE HCL 10 MG TABLET (FOR DETOX USE ONLY) PO ONE (09:21)
[2024-04-15] MEDS: PRENATAL VITAMINS W/ FOLIC ACID TABLET (FP) PO SCH (09:22)
[2024-04-15] MEDS: TAMSULOSIN HCL 0.4 MG CAP PO SCH (09:22)
[2024-04-15] MEDS: predniSONE 20 MG TABLET (UD) PO SCH (09:25)
[2024-04-15] MEDS: CHOLECALCIFEROL (VIT D3) 1,000 UNIT (25 MCG) TABLET PO SCH (09:26)
[2024-04-16] MEDS: MIRTAZAPINE 15 MG TABLET (FP) PO SCH (21:02)
[2024-04-17] MEDS: methaDONE HCL 10 MG TABLET (FOR DETOX USE ONLY) PO ONE (09:21)
[2024-04-17] MEDS: BACITRACIN 0.9 GM PACKET TP SCH (15:11)
[2024-04-17] MEDS: TAMSULOSIN HCL 0.4 MG CAP PO SCH (21:59)
[2024-04-18 09:25] VITALS: RESP 18
[2024-04-18 12:59] VITALS: BP 135/73; PULSE 86; TEMP 97.1
== END 2024-04-18 15:26 | disposition other institution (70) | DRG 773 ==
LOC: YASAS 09:49 → Y3N 10:25
PROVIDERS: ADMIT Allergy & Immunology; ATTEND Surgery
PROC: HZ2ZZZZ Detoxification Services for Substance Abuse Treatment (ICD-10-PCS; principal; 2024-04-14)
DX: F11.23 Opioid dependence with withdrawal (principal); F14.20 Cocaine dependence, uncomplicated; F19.94 Other psychoactive substance use, unspecified with psychoactive substance-induced mood disorder; I10 Essential (primary) hypertension; E78.5 Hyperlipidemia, unspecified; N40.0 Benign prostatic hyperplasia without lower urinary tract symptoms; M54.31 Sciatica, right side; M54.59 Other low back pain; G89.29 Other chronic pain; M41.9 Scoliosis, unspecified; M26.603 Bilateral temporomandibular joint disorder, unspecified; G47.00 Insomnia, unspecified; L43.9 Lichen planus, unspecified; Z56.0 Unemployment, unspecified
CPT/HCPCS: 80305; 80307; 87811

== ENCOUNTER 2024-04-18 15:36 | Inpatient (IN) | payer OTHER ==
[2024-04-18] MEDS ORDERED: NALOXONE HCL 0.4 MG/ML VIAL IVPUSH PRN (18:16)
[2024-04-18] MEDS ORDERED: POLYETHYLENE GLYCOL (HEALTHYLAX) 3350 17 GM PACKET PO PRN (18:16)
[2024-04-18] MEDS ORDERED: NICOTINE POLACRILEX 2 MG LOZENGE BC PRN (18:16)
[2024-04-18] MEDS ORDERED: MAG HYDROX/AL HYDROX/SIMETH 30 ML UNIT-DOSE CUP PO PRN (18:16)
[2024-04-18] MEDS ORDERED: LOPERAMIDE HCL 2 MG CAPSULE PO PRN (18:16)
[2024-04-18] MEDS ORDERED: IBUPROFEN 400 MG TABLET (FP) PO PRN (18:16)
[2024-04-18] MEDS ORDERED: NICOTINE POLACRILEX 2 MG GUM BUC PRN (18:16)
[2024-04-18] MEDS ORDERED: IBUPROFEN 600 MG TABLET (FP) PO PRN (18:16)
[2024-04-18] MEDS ORDERED: guaiFENesin 600 MG TABLET.ER (FP) PO PRN (18:16)
[2024-04-18] MEDS ORDERED: BENZONATATE 200 MG CAPSULE PO PRN (18:16)
[2024-04-18] MEDS ORDERED: NALOXONE (NARCAN) HCL 4 MG/0.1 ML SPRAY NS PRN (18:16)
[2024-04-18] MEDS: ATORVASTATIN CA 10 MG TABLET (FP) PO SCH (21:14)
[2024-04-18] MEDS: THIAMINE 100 MG TABLET PO SCH (21:14)
[2024-04-18] MEDS: SULFAMETHOXAZOLE/TRIMETHOPRIM 800MG/160MG D.S. TABLET PO SCH (21:14)
[2024-04-18] MEDS: MELATONIN 5 MG TABLETS PO SCH (21:14)
[2024-04-19] MEDS: METHOCARBAMOL 500 MG TABLET PO PRN (01:13)
[2024-04-19] MEDS: TAMSULOSIN HCL 0.4 MG CAP PO SCH (07:36)
[2024-04-19] MEDS: ACETAMINOPHEN 325 MG TABLET (FP) PO PRN (07:36)
[2024-04-19] MEDS: PRENATAL VITAMINS W/ FOLIC ACID TABLET (FP) PO SCH (09:55)
[2024-04-19] MEDS: CHOLECALCIFEROL (VIT D3) 1,000 UNIT (25 MCG) TABLET PO SCH (09:56)
[2024-04-19] MEDS: predniSONE 20 MG TABLET (UD) PO SCH (09:56)
[2024-04-19] MEDS: SODIUM HYPOCHLORITE 0.25%- 473 ML BULK BOTTLE TP SCH (12:30)
[2024-04-19] MEDS: MIRTAZAPINE 15 MG TABLET (FP) PO SCH (21:12)
[2024-04-21] MEDS: BENZOCAINE/MENTHOL (CHLORASEPTIC ) LOZENGE MM PRN (02:39)
[2024-04-21] MEDS: hydrOXYzine PAMOATE 25 MG CAPSULE (FP) PO ONE (02:59)
[2024-04-21] MEDS: MAGNESIUM HYDROX 2400MG/30ML ORAL SUSPENSION 30 ML CUP PO PRN (17:31)
[2024-04-22] MEDS: LIDOCAINE 2.5%/PRILOCAINE 2.5% 30 GRAM TUBE TP SCH (16:05)
[2024-04-22] MEDS: CLINDAMYCIN PHOSPHATE 1% TOPICAL GEL 30 GM TUBE TP SCH (21:07)
[2024-04-23] MEDS: predniSONE 10 MG TABLET (UD) PO SCH (09:57)
[2024-04-28] MEDS: LORATADINE 10 MG TABLET PO PRN (17:36)
[2024-04-29] MEDS: OXYMETAZOLINE 0.05% NASAL SOLUTION 15 ML BOTTLE NS PRN (21:17)
[2024-04-30] MEDS: LIDOCAINE 4% PATCH TP SCH (13:50)
[2024-04-30] MEDS: LIDOCAINE PATCH REMOVAL MC SCH (22:39)
[2024-05-04 06:47] VITALS: RESP 18
[2024-05-07] MEDS ORDERED: hydrOXYzine PAMOATE 25 MG CAPSULE (FP) PO PRN (15:12)
[2024-05-07] MEDS: MELATONIN 5 MG TABLETS PO SCH (21:09)
[2024-05-07] MEDS: CARBAMIDE PEROXIDE 6.5% OTIC 15 ML BOTTLE AD SCH (21:10)
[2024-05-08] MEDS: predniSONE 5 MG TABLET (UD) PO SCH (09:49)
[2024-05-10 06:34] VITALS: BP 119/78; PULSE 90; TEMP 98
== END 2024-05-10 10:14 | disposition home or self-care (01) | DRG 772 ==
LOC: YASAS 15:36 → Y5N 15:38
PROVIDERS: ADMIT Allergy & Immunology; ATTEND Psychiatry & Neurology Pain Medicine
PROC: HZ42ZZZ Group Counseling for Substance Abuse Treatment, Cognitive-Behavioral (ICD-10-PCS; principal; 2024-04-18)
DX: F14.20 Cocaine dependence, uncomplicated (principal); F19.282 Other psychoactive substance dependence with psychoactive substance-induced sleep disorder; F19.280 Other psychoactive substance dependence with psychoactive substance-induced anxiety disorder; F19.24 Other psychoactive substance dependence with psychoactive substance-induced mood disorder; F41.9 Anxiety disorder, unspecified; F43.10 Post-traumatic stress disorder, unspecified; E78.5 Hyperlipidemia, unspecified; I10 Essential (primary) hypertension; J30.2 Other seasonal allergic rhinitis; H61.21 Impacted cerumen, right ear; L02.412 Cutaneous abscess of left axilla; L02.411 Cutaneous abscess of right axilla; L43.9 Lichen planus, unspecified; N40.0 Benign prostatic hyperplasia without lower urinary tract symptoms
CPT/HCPCS: 83036

== ENCOUNTER 2024-04-21 13:30 | Emergency (ER) | payer OTHER ==
[2024-04-21 13:48] VITALS: BP 115/60; PULSE 84; RESP 18; TEMP 98.1; BMI 30.2
== END 2024-04-21 16:10 | disposition home or self-care (01) ==
LOC: JER 13:30
DX: L73.2 Hidradenitis suppurativa (principal)
CPT/HCPCS: 99283-25

== ENCOUNTER 2024-09-28 15:52 | Inpatient (IN) | payer OTHER ==
[2024-09-28 16:26] VITALS: BMI 28.7
[2024-09-28] MEDS ORDERED: MAGNESIUM HYDROX 2400MG/30ML ORAL SUSPENSION 30 ML CUP PO PRN (16:44)
[2024-09-28] MEDS ORDERED: methaDONE HCL 10 MG TABLET (FOR DETOX USE ONLY) PO PRN (16:44)
[2024-09-28] MEDS ORDERED: guaiFENesin 600 MG TABLET.ER (FP) PO PRN (16:44)
[2024-09-28] MEDS ORDERED: BENZOCAINE/MENTHOL (CHLORASEPTIC ) LOZENGE MM PRN (16:44)
[2024-09-28] MEDS ORDERED: cloNIDine HCL 0.1 MG TABLET PO PRN (16:44)
[2024-09-28] MEDS ORDERED: IBUPROFEN 400 MG TABLET (FP) PO PRN (16:44)
[2024-09-28] MEDS ORDERED: NALOXONE (NARCAN) HCL 4 MG/0.1 ML SPRAY NS PRN (16:44)
[2024-09-28] MEDS ORDERED: DICYCLOMINE HCL 10 MG CAPSULE PO PRN (16:44)
[2024-09-28] MEDS ORDERED: LOPERAMIDE HCL 2 MG CAPSULE PO PRN (16:44)
[2024-09-28] MEDS ORDERED: BENZONATATE 200 MG CAPSULE PO PRN (16:44)
[2024-09-28] MEDS ORDERED: BISMUTH SUBSALICYLATE 524 MG/30 ML PO PRN (16:44)
[2024-09-28] MEDS ORDERED: methaDONE HCL 10 MG TABLET (FOR DETOX USE ONLY) ONE (17:53)
[2024-09-28] MEDS: methaDONE HCL 10 MG TABLET (FOR DETOX USE ONLY) PO ONE (17:57)
[2024-09-28] MEDS: ATORVASTATIN CA 10 MG TABLET (FP) PO SCH (21:24)
[2024-09-28] MEDS: MELATONIN 5 MG TABLETS PO SCH (21:24)
[2024-09-28] MEDS: THIAMINE 100 MG TABLET PO SCH (21:24)
[2024-09-28] MEDS: hydrOXYzine PAMOATE 25 MG CAPSULE (FP) PO PRN (22:50)
[2024-09-29] MEDS: METHOCARBAMOL 500 MG TABLET PO PRN (02:07)
[2024-09-29] MEDS: hydrOXYzine PAMOATE 25 MG CAPSULE (FP) PO ONE (02:10)
[2024-09-29] MEDS: TAMSULOSIN HCL 0.4 MG CAP PO SCH (07:30)
[2024-09-29] MEDS: PRENATAL VITAMINS W/ FOLIC ACID TABLET (FP) PO SCH (09:14)
[2024-09-29] MEDS: predniSONE 5 MG TABLET (UD) PO SCH (09:14)
[2024-09-29] MEDS: CHOLECALCIFEROL (VIT D3) 1,000 UNIT (25 MCG) TABLET PO SCH (09:14)
[2024-09-29 09:41] LABS: HEMATOCRIT 35.6 % (35.4-49); HEMOGLOBIN 11.6 GM/dL (11.7-16.9); MCH 26.9 pg (25.7-33.7); MCHC 32.5 g/dl (32.0-35.9); MEAN CELL VOLUME 82.8 fl (80-96); MEAN PLT VOLUME 8.3 fl (7.5-11.1); PLATELET COUNT 258 10^3/uL (134-434); RDW 14.7 % (11.9-15.9); WHITE BLOOD COUNT 7.8 K/mm3 (4.0-10.0)
[2024-09-29 09:52] LABS: POTASSIUM 3.9 mmol/L (3.5-5.1)
[2024-09-29 10:22] LABS: CALCIUM 9.3 mg/dL (8.5-10.1)
[2024-09-29 10:23] LABS: ALBUMIN 3.7 g/dl (3.4-5.0); BLOOD UREA NITROGEN 15.8 mg/dL (7-18)
[2024-09-29 10:27] LABS: CREATININE 1.2 mg/dL (0.55-1.3)
[2024-09-29 10:28] LABS: BILIRUBIN,TOTAL 0.6 mg/dL (0.2-1); TOT PROT 7.4 g/dl (6.4-8.2)
[2024-09-29] MEDS: MAG HYDROX/AL HYDROX/SIMETH 30 ML UNIT-DOSE CUP PO PRN (14:45)
[2024-09-29] MEDS: FERROUS SO4 325 MG TABLET (FP) PO SCH (15:48)
[2024-09-29] MEDS: ONDANSETRON *ODT* 4 MG TABLET SL PRN (21:20)
[2024-09-30] MEDS: ACETAMINOPHEN 325 MG TABLET (FP) PO PRN (06:01)
[2024-09-30] MEDS: methaDONE HCL 10 MG TABLET (FOR DETOX USE ONLY) PO ONE (10:15)
[2024-09-30] MEDS: DOCUSATE NA 100 MG/10 ML UNIT-DOSE CUPS PO ONE (10:31)
[2024-09-30] MEDS ORDERED: MINERAL OIL/PETROLAT/WATER TOPICAL CREAM 113 GM JAR TP PRN (10:49)
[2024-09-30] MEDS: IBUPROFEN 600 MG TABLET (FP) PO PRN (20:31)
[2024-09-30] MEDS: hydrOXYzine PAMOATE 25 MG CAPSULE (FP) PO PRN (20:31)
[2024-09-30] MEDS: SUVOREXANT 10 MG TABLET PO PRN (21:23)
[2024-10-01] MEDS ORDERED: diphenhydrAMINE HCL 25 MG CAPSULE (FP) PO ONE (09:45)
[2024-10-01] MEDS: diphenhydrAMINE HCL 50 MG CAPSULE PO SCH (10:08)
[2024-10-01] MEDS: POLYETHYLENE GLYCOL (HEALTHYLAX) 3350 17 GM PACKET PO PRN (21:58)
[2024-10-02] MEDS ORDERED: diphenhydrAMINE HCL 25 MG CAPSULE (FP) PO ONE (09:16)
[2024-10-02] MEDS: methaDONE HCL 10 MG TABLET (FOR DETOX USE ONLY) PO ONE (09:44)
[2024-10-02] MEDS: SUVOREXANT 10 MG TABLET PO PRN (21:42)
[2024-10-03] MEDS ORDERED: diphenhydrAMINE HCL 50 MG CAPSULE PO PRN (08:35)
[2024-10-03] MEDS ORDERED: diphenhydrAMINE HCL 25 MG CAPSULE (FP) PO ONE (08:54)
[2024-10-03 09:52] VITALS: BP 149/79; PULSE 83; RESP 18; TEMP 97.3
[2024-10-03] MEDS ORDERED: FLUOCINONIDE 0.05% TOP OINT (15 GM TUBE) TP SCH (10:00)
== END 2024-10-03 10:36 | disposition other institution (70) | DRG 773 ==
LOC: YASAS 15:52 → Y3N 17:41
PROVIDERS: ADMIT Allergy & Immunology; ATTEND Allergy & Immunology
PROC: HZ2ZZZZ Detoxification Services for Substance Abuse Treatment (ICD-10-PCS; principal; 2024-09-28)
DX: F11.23 Opioid dependence with withdrawal (principal); F14.20 Cocaine dependence, uncomplicated; F19.282 Other psychoactive substance dependence with psychoactive substance-induced sleep disorder; F43.10 Post-traumatic stress disorder, unspecified; F41.9 Anxiety disorder, unspecified; E78.1 Pure hyperglyceridemia; I10 Essential (primary) hypertension; L43.9 Lichen planus, unspecified; N40.0 Benign prostatic hyperplasia without lower urinary tract symptoms; M54.41 Lumbago with sciatica, right side; G89.29 Other chronic pain
CPT/HCPCS: 36415; 80053; 80305; 80307; 85027; 86780; 93005; 93010; Q0162

== ENCOUNTER 2024-10-03 10:45 | Inpatient (IN) | payer OTHER ==
[2024-10-03] MEDS ORDERED: NALOXONE (NARCAN) HCL 4 MG/0.1 ML SPRAY NS PRN (15:21)
[2024-10-03] MEDS ORDERED: guaiFENesin 600 MG TABLET.ER (FP) PO PRN (15:21)
[2024-10-03] MEDS ORDERED: IBUPROFEN 400 MG TABLET (FP) PO PRN (15:21)
[2024-10-03] MEDS ORDERED: BENZONATATE 200 MG CAPSULE PO PRN (15:21)
[2024-10-03] MEDS ORDERED: NALOXONE HCL 0.4 MG/ML VIAL IVPUSH PRN (15:21)
[2024-10-03] MEDS ORDERED: LOPERAMIDE HCL 2 MG CAPSULE PO PRN (15:21)
[2024-10-03] MEDS ORDERED: MAG HYDROX/AL HYDROX/SIMETH 30 ML UNIT-DOSE CUP PO PRN (15:21)
[2024-10-03] MEDS ORDERED: SUVOREXANT 15 MG TABLET PO PRN (15:22)
[2024-10-03] MEDS: THIAMINE 100 MG TABLET PO SCH (22:10)
[2024-10-03] MEDS: ATORVASTATIN CA 10 MG TABLET (FP) PO SCH (22:11)
[2024-10-03] MEDS: MELATONIN 5 MG TABLETS PO SCH (22:11)
[2024-10-03] MEDS: hydrOXYzine PAMOATE 25 MG CAPSULE (FP) PO PRN (22:13)
[2024-10-04] MEDS: TAMSULOSIN HCL 0.4 MG CAP PO SCH (07:41)
[2024-10-04] MEDS: PRENATAL VITAMINS W/ FOLIC ACID TABLET (FP) PO SCH (10:16)
[2024-10-04] MEDS: CHOLECALCIFEROL (VIT D3) 1,000 UNIT (25 MCG) TABLET PO SCH (10:16)
[2024-10-04] MEDS: predniSONE 5 MG TABLET (UD) PO SCH (10:39)
[2024-10-04] MEDS: MINERAL OIL/PETROLAT/WATER TOPICAL CREAM 113 GM JAR TP PRN (10:40)
[2024-10-04] MEDS: FLUOCINONIDE 0.05% GEL (15 GM) TP SCH (12:26)
[2024-10-05] MEDS: BENZOCAINE/MENTHOL (CHLORASEPTIC ) LOZENGE MM PRN (00:28)
[2024-10-05] MEDS: METHOCARBAMOL 500 MG TABLET PO PRN (00:58)
[2024-10-05] MEDS: ACETAMINOPHEN 325 MG TABLET (FP) PO PRN (06:22)
[2024-10-05] MEDS: POLYETHYLENE GLYCOL (HEALTHYLAX) 3350 17 GM PACKET PO PRN (10:00)
[2024-10-05] MEDS: SUVOREXANT 10 MG TABLET PO PRN (21:00)
[2024-10-06] MEDS: MAGNESIUM HYDROX 2400MG/30ML ORAL SUSPENSION 30 ML CUP PO PRN (00:59)
[2024-10-07] MEDS: IBUPROFEN 600 MG TABLET (FP) PO PRN (02:31)
[2024-10-07] MEDS ORDERED: guaiFENesin 600 MG TABLET.ER (FP) PO PRN (16:44)
[2024-10-07] MEDS ORDERED: BENZONATATE 200 MG CAPSULE PO PRN (16:44)
[2024-10-07] MEDS: LORATADINE 10 MG TABLET PO SCH (19:12)
[2024-10-15] MEDS: OXYMETAZOLINE 0.05% NASAL SOLUTION 15 ML BOTTLE NS PRN (21:17)
[2024-10-21] MEDS: CARBAMIDE PEROXIDE 6.5% OTIC 15 ML BOTTLE AU SCH (14:51)
[2024-10-30 06:42] VITALS: RESP 18
[2024-10-31 07:20] VITALS: TEMP 96.8
[2024-10-31 09:04] VITALS: BP 148/76; PULSE 78
== END 2024-10-31 09:55 | disposition home or self-care (01) | DRG 772 ==
LOC: YASAS 10:45 → Y3NR 10:54 → Y5N 10-04 10:17
PROVIDERS: ADMIT Psychiatry & Neurology Pain Medicine; ATTEND Psychiatry & Neurology Pain Medicine
PROC: HZ42ZZZ Group Counseling for Substance Abuse Treatment, Cognitive-Behavioral (ICD-10-PCS; principal; 2024-10-03)
DX: F11.20 Opioid dependence, uncomplicated (principal); F14.20 Cocaine dependence, uncomplicated; F19.280 Other psychoactive substance dependence with psychoactive substance-induced anxiety disorder; F19.24 Other psychoactive substance dependence with psychoactive substance-induced mood disorder; F43.10 Post-traumatic stress disorder, unspecified; F41.9 Anxiety disorder, unspecified; E78.1 Pure hyperglyceridemia; I10 Essential (primary) hypertension; M54.41 Lumbago with sciatica, right side; G89.29 Other chronic pain; N40.0 Benign prostatic hyperplasia without lower urinary tract symptoms; Z99.89 Dependence on other enabling machines and devices
CPT/HCPCS: 0241U-QW; 36415; 86803; 87811